=== PATIENT | female | born 1985 | race African-American/Black ===

== ENCOUNTER 2020-02-01 15:47 | Emergency (ER) | payer SELFPAY ==
[2020-02-01 15:59] VITALS: BP 125/94; PULSE 100; RESP 18; TEMP 36.8; O2SAT 100
== END 2020-02-01 17:00 | disposition left against medical advice (07) ==
LOC: ANHED 17:09
DX: R51 Headache (principal)
CPT/HCPCS: 99199

== ENCOUNTER 2020-02-01 17:05 | Emergency (ER) | payer BC, SELFPAY ==
[2020-02-01 17:19] VITALS: BP 145/77; PULSE 98; RESP 16; TEMP 36.9; O2SAT 99
--- NOTE | 2020-02-01 17:21 | ED.DIZZY ---
HPI - Dizziness General Chief Complaint: Dizziness Stated Complaint: Vertigo Time Seen by Provider: 02/01/20 17:22 Source: patient and RN notes reviewed Mode of arrival: wheelchair (walk into registration but wheelchair into a room) Limitations: no limitations History of Present Illness HPI Narrative: This is a 34 years old female presents to the office for an evaluation severe dizziness since she woke up this morning at 3am. Described dizziness as room spinning. Associated with photosensitivity, nauseous, and unable to walk due to unsteadiness. Admits to history of minor CVA in 2013 with similar symptoms which she was hospitalized for but she does not have any residual deficit. She also have similar symptoms in 2017, where she was diagnosed with vertigo and treated with IV medications which solved her symptoms until today. Denies head trauma or injury. She went to [place] [facility] and waited too long so she came here instead. Denies recent hospitalization, surgery or DVT. Related Data Home Medications Medication Instructions Recorded Confirmed Fioricet 02/01/20 Flexeril 02/01/20 Pamelor 02/01/20 Singulair 02/01/20 albuterol sulfate 02/01/20 sertraline 02/01/20 valacyclovir 02/01/20 Allergies Allergy/AdvReac Type Severity Reaction Status Date / Time No Known Allergies Allergy Verified 02/01/20 17:23 Review of Systems Review of Systems: Narrative: CONSTITUTIONAL: Denies fever, chills, sweats. EYES: Denies visual changes, redness, discharge. ENT: Denies rhinorrhea, congestion, sore throat, otalgia. CARDIOVASCULAR: Denies chest pain, palpitation, edema. RESPIRATORY: Denies dyspnea, wheezing, cough GASTROINTESTINAL: Denies abdominal pain, nausea, vomiting, diarrhea. GENITOURINARY: Denies urinary symptoms or discharge SKIN: Denies rash MUSCULOSKELETAL: Denies acute back pain NEUROLOGIC: Denies lightheaded All other systems reviewed are negative, except as documented in HPI. [facility] Past Medical History Medical History (Updated 02/01/20 @ 18:18 by ALETHA Marshall) History of CVA (cerebrovascular accident) without residual deficits Migraine Seasonal allergies Social History Social History (Updated 02/01/20 @ 18:18 by ALETHA Marshall) Smoking status: Never smoker Gender identity (if verbalized by the patient): Female Comments At time of signature, I agree with nursing past medical, surgical, social and family history. There is no relevant family history pertinent to the presenting complaint. Exam Narrative: Exam Narrative: GENERAL: This is a well-nourished, well-developed patient, in no apparent distress. EYES: PERRL. EMOI. Sclera clear/white. Vision is grossly intact. EARS: External ears normal, auditory canals clear and without drainage, TMs normal without perforation, fluid level noted. Hearing grossly intact. NECK: Neck supple, non-tender without lymphadenopathy, masses or thyromegaly. CARDIOVASCULAR: Regular rate and rhythm without murmurs, gallops, or rubs. RESPIRATORY: Clear to auscultation. Breath sounds equal bilaterally. No wheezes, rales, or rhonchi. GASTROINTESTINAL: Abdomen soft, non-tender, nondistended. Bowel sounds are active. No hepato-splenomegaly, or palpable masses. No guarding. SKIN: warm, intact with no suspicious lesions or rash, good texture and turgor. NEURO: speech clear, no facial dropping/symmetrical. Awake, alert, and oriented to person, place and time. There were no obvious focal neurologic abnormalities. EXTREMITIES: Normal range of motion. No edema. [place] Coma Scale Eye Opening: Spontaneous 4 Ayesha Coma Scale Motor: Obeys Commands 6 Ayesha Coma Scale Verbal: Oriented 5 Course Vital Signs Vital signs: Vital Signs Temperature 98.4 F 02/01/20 17:19 Pulse Rate 98 02/01/20 17:19 Respiratory Rate 16 02/01/20 17:19 Blood Pressure 145/77 H 02/01/20 17:19 Pulse Oximetry 99 02/01/20 17:19 Temperature 98.4 F 02/01/20 17:19
--- NOTE | 2020-02-01 17:35 | PC.NURSE ---
Patient was triaged and evaluated by [facility]. Patient was informed we can't evaluate her here. Have no IV medication. Patient needs further evaluation due to past history of CVA and migraines. I took the AMA paper in and patient was very upset. Refused to sign paper. Refused to let me wheel her out in a wheelchair. Was very angry. States she waited at the ED and they were too busy to see her, so she came here.
== END 2020-02-01 17:45 | disposition left against medical advice (07) ==
PROVIDERS: Emergency Provider Nurse Practitioner
DX: R42 Dizziness and giddiness (principal); Z86.73 Personal history of transient ischemic attack (TIA), and cerebral infarction without residual deficits
CPT/HCPCS: 99201; 99203; G0463

== ENCOUNTER 2021-10-19 09:08 | Outpatient (CLI) | payer OTHER, SELFPAY ==
--- NOTE | ~2021-10-19 | MMUS_ITS ---
EXAMINATION: MM diagnostic enrico BI w calos, US breast BI complete HISTORY: Right breast pain TECHNIQUE: Additional 3-D tomosynthesis images of the breasts were performed and synthetic 2-D images were generated. CAD analysis was submitted and interpreted. High resolution bilateral complete breas t ultrasound was performed. COMPARISON: None BREAST PARENCHYMAL COMPOSITION: The breasts are heterogenously dense, which may obscure small masses. FINDINGS: MAMMOGRAPHIC FINDINGS: There are no suspicious masses, calcifications or architectural distortion in either breast to sugges t malignancy. ULTRASOUND: Complete bilateral US of all 4 quadrants of the breasts and retroareolar region was reviewed. Right breast ultrasound: At 6:00, 4 cm from the nipple there is an irregular shaped hypoechoic mass w ith heterogeneous internal echotexture measuring 9 mm maximum dimension. No internal vascularity or p osterior features. There are mildly prominent ducts in the right breast. Left breast ultrasound: At 2:00, 5 cm from the nipple, there is an oval hypoechoic mass measuring 8 x 4 x 3 mm with heterogeneous internal echotexture, parallel orientation, no significant posterior fea tures and no internal vascularity. This most likely represents a benign cluster of microcysts or intr amammary lymph node. IMPRESSION: 1. Ultrasound-guided right breast biopsy of mass at 6:00, 4 cm from the nipple recommended. BI-RADS C ategory 4. 2. Probable benign left breast mass located at 2:00, 5 cm from the nipple. Six-month follow-up left b reast ultrasound recommended. BI-RADS Category 3, likely benign. Reviewed, dictated and finalized at location A. IMPRESSION: 1. Ultrasound-guided right breast biopsy of mass at 6:00, 4 cm from the nipple recommended. BI-RADS Category 4. 2. Probable benign left breast mass located at 2:00, 5 cm from the nipple. Six- month follow-up left breast ultrasound recommended. BI-RADS Category 3, likely benign.
== END 2021-10-19 09:09 ==
DX: N64.4 Mastodynia (principal); R92.8 Other abnormal and inconclusive findings on diagnostic imaging of breast
CPT/HCPCS: 76641; 77062; 77066; G0279

== ENCOUNTER 2022-03-19 08:29 | Emergency (ER) | payer OTHER, SELFPAY ==
[2022-03-19 08:36] VITALS: BP 133/67; PULSE 100; RESP 18; TEMP 36.7; O2SAT 100
--- NOTE | 2022-03-19 08:39 | ED.UPPEXIN ---
HPI - Extremity Injury (Upper) General Chief Complaint: Extremity Problem,Nontraumatic Stated Complaint: Right Hand Pain Time Seen by Provider: 03/19/22 08:45 History of Present Illness HPI narrative: Tracy Calvillo is a 36 yo female with PMH migraines who comes to express care with paronychia on R fourth finger. States she pulled a hangnail out and now the finger is swollen on the medial side of the nail Related Data Home Medications Medication Instructions Recorded Confirmed valacyclovir 1 gram tablet 1,000 mg PO DAILY 03/19/22 03/19/22 Allergies Allergy/AdvReac Type Severity Reaction Status Date / Time No Known Allergies Allergy Verified 03/19/22 08:36 Review of Systems Review of Systems: CONSTITUTIONAL: Denies fever, chills, sweats. EYES: Denies visual changes, redness, discharge. ENT: Denies rhinorrhea, congestion, sore throat, otalgia. CARDIOVASCULAR: Denies chest pain, palpitations, edema. RESPIRATORY: Denies dyspnea, wheezing, cough GASTROINTESTINAL: Denies abdominal pain, nausea, vomiting, diarrhea. GENITOURINARY: Denies dysuria, hematuria, abnormal discharge SKIN: Denies rash or itching. NEUROLOGIC: Denies numbness, or focal weakness. PSYCHIATRIC: Denies anxiety or depression. Swelling along the medial side of fourth right finger PMFSH Past Medical History Medical History History of CVA (cerebrovascular accident) without residual deficits Migraine Seasonal allergies Social History Social History Smoking status: Never smoker Gender identity (if verbalized by the patient): Female Comments At time of signature, I agree with nursing past medical, surgical, social and family history. There is no relevant family history pertinent to the presenting complaint. Exam Narrative: GENERAL: This is a well-nourished, well-developed patient, in mild distress. HEAD: normocephalic, atraumatic. EYES: PERRL. Sclera clear/white. Vision is grossly intact. EARS: External ears normal. Hearing grossly intact. NOSE: External nose normal without nasal discharge, nares without redness, no rhinorrhea. THROAT: Mucous membranes moist, NECK: Neck supple, non-tender CARDIOVASCULAR: Regular rate and rhythm without murmurs, gallops, or rubs. RESPIRATORY: Clear to auscultation. Breath sounds equal bilaterally. No wheezes, rales, or rhonchi. GASTROINTESTINAL: Abdomen soft, non-tender, SKIN: warm, intact with no suspicious lesions or rash, good texture and turgor. NEURO: awake, alert, and oriented to person, place and time. There were no obvious focal neurologic abnormalities. Steady gait EXTREMITIES: Normal range of motion. Right medial distal finger swelling to base of nail, mild erythema and fluctuance BACK: Nontender without deformity Course Course Emergency Course: Patient comes in with right fourth finger distal swelling Given lidocaine half cc cleaned and used 18-gauge needle to run along the nailbed and release pus Patient to soak twice a day and take Keflex Level of Care: Express Care Visit Vital Signs Vital signs: Vital Signs Temperature 98.1 F 03/19/22 08:36 Pulse Rate 100 03/19/22 08:36 Respiratory Rate 18 03/19/22 08:36 Blood Pressure 133/67 03/19/22 08:36 Pulse Oximetry 100 03/19/22 08:36 Oxygen Delivery Room Air 03/19/22 08:36 Temperature 98.1 F 03/19/22 08:36 Pulse Rate 100 03/19/22 08:36 Respiratory Rate 18 03/19/22 08:36 Blood Pressure 133/67 03/19/22 08:36 Pulse Oximetry 100 03/19/22 08:36 Oxygen Delivery Room Air 03/19/22 08:36 Procedures Abscess I/D hand: Date of Incision: 03/19/22 Time of Incision: 09:10 Side (if applicable): right Local Anesthetic: lidocaine 1% Amount of anesthesia used (mL): 0.5 Technique: needle aspiration Amount of fluid expressed (mL): 1 Irrigation: Yes I
== END 2022-03-19 09:17 | disposition home or self-care (01) ==
PROVIDERS: Emergency Provider Nurse Practitioner
DX: L03.011 Cellulitis of right finger (principal); Z86.73 Personal history of transient ischemic attack (TIA), and cerebral infarction without residual deficits
CPT/HCPCS: 10160; 99213; G0463

== ENCOUNTER 2023-07-15 08:39 | Emergency (ER) | payer OTHER, SELFPAY ==
[2023-07-15 08:48] VITALS: BP 115/82; PULSE 105; RESP 16; TEMP 37.3; O2SAT 99
--- NOTE | 2023-07-15 09:21 | ED.ASTHMA ---
HPI - Asthma General Chief Complaint: Asthma Stated Complaint: asthma issue Time Seen by Provider: 07/15/23 09:21 Source: patient Mode of arrival: ambulatory Limitations: no limitations History of Present Illness HPI Narrative: 37-year-old female with history of asthma presents with complaint of intermittent chest tightness, wheezing over the past several days. Patient using inhalers as prescribed. Last neb treatment at 6:00 a.m. today. No shortness of breath at this time. Patient requesting prednisone. All systems reviewed and negative except as noted above. Related Data Home Medications Medication Instructions Recorded Confirmed fluticasone 113mcg-salmeterol 1 inh inhalation BID 04/24/23 07/15/23 14mcg/actuation breath act,powder sensor nortriptyline 10 mg capsule 10 mg PO QHS 04/24/23 07/15/23 albuterol sulfate 90 mcg/actuation 1 inh inhalation Q4H 05/18/23 07/15/23 aerosol inhaler Allergies Allergy/AdvReac Type Severity Reaction Status Date / Time No Known Allergies Allergy Verified 07/15/23 08:53 Review of Systems Review of Systems: CONSTITUTIONAL: Denies fever, chills, or sweats. EYES: Denies visual changes, redness, or discharge. ENT: Denies rhinorrhea, congestion, sore throat, or otalgia. CARDIOVASCULAR: Denies chest pain, palpitations, or edema. RESPIRATORY: reports chest tightness, intermittent wheezing. Denies cough. GASTROINTESTINAL: Denies abdominal pain, nausea, vomiting, or diarrhea. GENITOURINARY: denies dysuria or hematuria. SKIN: Denies rash or itching. MUSCULOSKELETAL: Denies back pain, joint pain, or myalgia. NEUROLOGIC: Denies headache, numbness, or weakness. PSYCHIATRIC: Denies anxiety or depression. All other systems reviewed are negative, except as documented in HPI. [facility] Past Medical History Medical History Asthma History of CVA (cerebrovascular accident) without residual deficits History of herpes evaluations History of miscarriage Migraine Seasonal allergies Surgical History Surgical History H/O tubal ligation History of 2 sections History of elective [place] teeth removed Family History Family History Other Asthma Hypertension Social History Social History Smoking status: Never smoker Alcohol intake: current Substance use: never Substance use type: does not use Lack of Transportation: No Lack of Food: Never True Current Housing: I Have Housing Concerned About Future Housing: No Difficulty Paying Gas/Electric Bills: No Difficulty Paying for Meds: No Currently Unemployed: No Education: Decline to Answer Difficulty w/ Childcare or Family Care: No Gender identity (if verbalized by the patient): Female Spiritual care concerns: No Agree to blood products: Yes Comments At time of signature, agree with nursing past medical, surgical, social and family history. There is no relevant family history pertinent to the presenting complaint. Exam Narrative: GENERAL: This is a well-nourished, well-developed patient, in no apparent distress. HEAD: normocephalic, atraumatic. EYES: PERRL. Sclera clear/white. Vision is grossly intact. EARS: External ears normal NOSE: External nose normal NECK: Neck supple, non-tender without lymphadenopathy, masses or thyromegaly. CARDIOVASCULAR: Regular rate and rhythm without murmurs, gallops, or rubs. RESPIRATORY: Clear to auscultation. Breath sounds equal bilaterally. No wheezes, rales, or rhonchi. SKIN: warm, Dry, intact with no suspicious lesions or rash, good texture and turgor. NEURO: awake, alert, and oriented to person, place and time. There were no obvious focal neurologic abnormalities. EXTREMITIES: No joint tenderness, effusion,
== END 2023-07-15 09:41 | disposition home or self-care (01) ==
PROVIDERS: Emergency Provider Nurse Practitioner Family; PCP Family Medicine
DX: J45.901 Unspecified asthma with (acute) exacerbation (principal); Z86.73 Personal history of transient ischemic attack (TIA), and cerebral infarction without residual deficits
CPT/HCPCS: 99213; G0463

== ENCOUNTER 2024-01-23 09:10 | Outpatient (CLI) | payer OTHER, SELFPAY ==
--- NOTE | ~2024-01-23 | MMUS_ITS ---
EXAMINATION: MM diagnostic enrico LT w calos, US breast LT complete HISTORY: Palpable left breast lump near the nipple TECHNIQUE: Additional 3-D tomosynthesis images of the left breast were performed and synthetic 2-D im ages were generated. CAD analysis was submitted and interpreted. High resolution complete left breast ultrasound was performed. COMPARISON: 10/19/2021 BREAST PARENCHYMAL COMPOSITION: Dense: The breasts are heterogeneously dense, which may obscure small masses FINDINGS: MAMMOGRAPHIC FINDINGS: There are suspicious architectural distortion or clustered calcifications. There is a focal mass near the nipple in the lower inner quadrant. ULTRASOUND: Complete bilateral US of all 4 quadrants of the left breast and retroareolar region was reviewed. At 3:00, 2 cm from the nipple, there is an oval hypoechoic 5 mm mass with low level internal echoes, and parallel orientation, no posterior features, likely benign complicated cyst. At 10:00, 4 cm from the nipple there is an oval hypoechoic 6 mm mass with parallel orientation, posterior acoustic enhanceme nt, likely complicated cysts. Near the arterial lobe there is an tubular hypoechoic structure with in ternal echogenic material likely a dilated duct with internal debris or mass. IMPRESSION: 1. Tubular structure in the left are a left with internal debris/masses. 2. Ultrasound-guided left breast biopsy recommended. BI-RADS category 4, suspicious findings. Reviewed, dictated and finalized at location B. IMPRESSION: 1. Tubular structure in the left are a left with internal debris/masses. 2. Ultrasound-guided left breast biopsy recommended. BI-RADS category 4, suspicious findings.
== END 2024-01-23 09:11 ==
LOC: MICIMG 09:11
PROVIDERS: PCP Family Medicine; Visit Provider Surgery
DX: N64.52 Nipple discharge (principal); N61.0 Mastitis without abscess; N64.4 Mastodynia; R92.8 Other abnormal and inconclusive findings on diagnostic imaging of breast
CPT/HCPCS: 76641; 77061; 77065; G0279

== ENCOUNTER 2024-02-29 08:08 | Outpatient (CLI) | payer OTHER, SELFPAY ==
--- NOTE | ~2024-02-29 | MMUS_ITS ---
US breast biopsy LT w image, MM post biopsy diagnostic LT EXAMINATION: US GUIDED NEEDLE BIOPSY WITH VACUUM ASSISTANCE DATE: 02/29/2024 10:32 CDT INDICATION: Intraductal mass seen on prior examination. Ultrasound-guided core biopsy is requested t o evaluate for malignancy. BREAST PARENCHYMAL COMPOSITION: Dense: The breasts are heterogeneously dense, which may obscure small masses TECHNIQUE AND FINDINGS: The risks and potential benefits of the procedure were discussed with the patient, and written inform ed consent was obtained. After sterile preparation of the left breast, 1% lidocaine was utilized for local anesthesia. 1% lidocaine with epinephrine was used for deep anesthesia. A 10G vacuum-assisted biopsy gun needle was advanced through to the outer edge of the region of inter est from a lateral approach utilizing sonographic guidance. A total of 2 tissue core samples were ob tained through the lesion. An Inrad tissue marker clip was then placed at the biopsy site. Hemostasi s was achieved. The patient tolerated procedure well and there was no evidence of immediate complication. The patien t was given verbal instructions partly is from the department. Left breast mammograms to document ti ssue marker clip placement. The tissue samples were submitted to surgical pathology for histologic an alysis. IMPRESSION: 1. Successful ultrasound-guided vacuum-assisted biopsy of left breast mass with post procedure mammo gram for marker placement. Please refer to pathology report for histologic analysis. Reviewed, dictated and finalized at location B. IMPRESSION: 1. Successful ultrasound-guided vacuum-assisted biopsy of left breast mass wit h post procedure mammogram for marker placement. Please refer to pathology repo rt for histologic analysis.
== END 2024-02-29 08:09 | disposition home or self-care (01) ==
PROVIDERS: PCP Family Medicine; Visit Provider Surgery
DX: N64.52 Nipple discharge (principal); N63.20 Unspecified lump in the left breast, unspecified quadrant; R92.8 Other abnormal and inconclusive findings on diagnostic imaging of breast
CPT/HCPCS: 19083; 77065; 88305; A4648

== ENCOUNTER 2024-09-27 15:19 | Emergency (ER) | payer OTHER, SELFPAY ==
--- NOTE | 2024-09-27 15:23 | ED.URI ---
HPI - URI/Sore Throat General Chief Complaint: Upper Respiratory Infection Stated Complaint: Sinus Time Seen by Provider: 09/27/24 15:23 Source: patient Mode of arrival: ambulatory Limitations: no limitations History of Present Illness HPI Narrative: Tracy is a 39 year old female patient presenting to the clinic today with c/o sinus congestion. She reports symptoms have been going on for approximately 5 days. Denies any fevers, chills, body aches. Does have a loss sinus congestion with drainage going down her throat. MD elicited complaint: cough, rhinorrhea, nasal congestion and sinus pain Related Data Home Medications ?Medication ?Instructions ?Recorded ?Confirmed ?Last Taken ?Type nortriptyline 10 mg capsule 10 mg PO QHS 04/24/23 07/02/24 Unknown History Allergies Allergy/AdvReac Type Severity Reaction Status Date / Time No Known Allergies Allergy Verified 09/27/24 15:33 Review of Systems Review of Systems: Pertinent positives per HPI. Patient denies any fever, chills, rash, headache, visual changes, dizziness, shortness of breath, chest pain, palpitations, nausea, vomiting, diarrhea, constipation, abdominal pain, or any urinary issues. [facility] Past Medical History Medical History History of miscarriage History of herpes evaluations Asthma Seasonal allergies Migraine History of CVA (cerebrovascular accident) without residual deficits Surgical History Surgical History [place] teeth removed History of elective H/O tubal ligation History of 2 sections Family History Family History Father Asthma Mother Alcoholism Other Hypertension Social History Social History Smoking status: Never smoker Alcohol intake: current Substance use: never Substance use type: does not use Lack of Transportation: No Lack of Food: Never True Current Housing: I Have Housing Concerned About Future Housing: No Difficulty Paying Gas/Electric Bills: No Difficulty Paying for Meds: No Currently Unemployed: No Education: Decline to Answer Difficulty w/ Childcare or Family Care: No Gender identity (if verbalized by the patient): Female Spiritual care concerns: No Agree to blood products: Yes Comments At the time of my signature, I reviewed and agree with the nursing past medical, surgical, social, and family history. There is no relevant family history pertinent to the patient complaint. Exam Narrative: General: Well-developed, well nourished, in no apparent distress Head: Normocephalic, atraumatic Eyes: Pupils equally round and reactive to light bilaterally, EOM intact, sclera and conjunctive clear, no discharge, lids normal Ears: TMs intact and clear, ear canals clear, no drainage, grossly hearing normal. Nose: Nares patent, clear nasal discharge, moderate inflammation, maxillary sinus tenderness. Mouth: Oral pharynx without lesions or masses, good dentition, MMM. Postnasal drip Neck: Supple, trachea midline, no enlargement of anterior or posterior cervical nodes, no thyroid masses or goiter palpable. Cardio: Regular rate and rhythm, s1 and s2 normal, no murmur appreciated. Resp: Clear to auscultation bilaterally, no rhonchi, rales, wheezing or rubs Course Course Emergency Course: Portions of this record may have been created with voice recognition software. Level of Care: Express Care Visit Vital Signs Vital signs: Vital signs reviewed MDM - URI/Sore Throat MDM Narrative Medical decision making narrative: At the time of visit patient is resting comfortably on the exam table. Patient appears to be nontoxic. Plan: I suspect patient has URI. Prescription for prednisone was sent to the pharmacy. Supportive measures were discussed with the patient and they voiced understanding discharge instructions and agrees to treatment plan. Return precautions reviewed Differential Diagnosis Differential diagnosis: Likely upper respiratory infection, otitis media, sinusitis, viral infection, bronchitis, influenza, pharyngitis and other (COVID) Discharge Plan Discharge Clinical Impression: URI (upper respiratory infection) Qualifiers: URI type: unspecified URI Qualified Code(s): J06.9 - Acute upper respiratory infection, unspecified Patient Disposition: Home, Self-Care Condition: Stable Instructions: Antibiotic Form, Cold Symptoms (ED) Additional Instructions: Take prescription medications only as prescribed-prednisone Increase fluids and stay well hydrated Tylenol/motrin for pain/fever Flonase and OTC antihistamines as directed Vicks vapor rub to open sinuses Sinus rinses for congestion Cepacol spray, cough drops, throat lozenges, warm tea with honey/lemon, gargle salt water to soothe throat BRAT diet for diarrhea Clear liquids x 24 hours then advance as tolerated for nausea/vomiting Go to the ED if you develop a worsening in your condition- high fever not controlled by Tylenol or Motrin, dehydration, weakness, lethargy, shortness of breath, or chest pain. Follow up with your PCP in 3-5 days if symptoms persist. Patient Language: Honduran Prescriptions: New prednisone 20 mg tablet 40 mg PO DAILY 5 Days Qty: 10 0RF No Action nortriptyline 10 mg capsule 10 mg PO QHS tranexamic acid 650 mg tablet 1,300 mg PO TID PRN (Reason: Heavy menstrual periods) Qty: 30 0RF Rx Instructions: Do not take more than five days in a row. fluticasone propion-salmeterol [Wixela Inhub] 250-50 mcg/dose blister with device 1 inh inhalation BID Qty: 60 0RF amoxicillin-pot clavulanate 875-125 mg tablet 1 tablet PO BID Qty: 20 0RF valacyclovir [Valtrex] 1 gram tablet 1,000 mg PO DAILY Qty: 90 3RF Rx Instructions: Take 1 p.o. q.12 hours for 3 days before onset of symptoms Contrave 8-90 mg tablet extended release See Rx Instructions PO .COMPLEX Qty: 120 1RF Rx Instructions: Take 1 tablet daily for 7 days then 1 bid for 7 days 2 AM and 1 PM for 7 days then 2 bid thereafter orally; albuterol sulfate 90 mcg/actuation HFA aerosol inhaler 1 inh inhalation Q4H PRN (Reason: shortness of breath or wheezing) Qty: 8.5 2RF albuterol sulfate 2.5 mg /3 mL (0.083 %) solution for nebulization 2.5 mg inhalation Q6H PRN (Reason: shortness of breath or wheezing) Qty: 75 0RF Follow-up/Referrals: Mini Miller MD [Primary Care Provider] - Time of Disposition: 15:35 Quality NIHSS Nursing Documentation ED NIHSS nursing documentation: reviewed/agree
[2024-09-27 15:30] VITALS: BP 144/87; PULSE 91; RESP 19; TEMP 37; O2SAT 100
== END 2024-09-27 15:44 | disposition home or self-care (01) ==
PROVIDERS: Emergency Provider Nurse Practitioner Family; PCP Family Medicine
DX: J06.9 Acute upper respiratory infection, unspecified (principal); J45.909 Unspecified asthma, uncomplicated; Z86.73 Personal history of transient ischemic attack (TIA), and cerebral infarction without residual deficits
CPT/HCPCS: 99213; G0463

== ENCOUNTER 2025-03-22 08:04 | Emergency (ER) | payer OTHER, SELFPAY ==
[2025-03-22 08:10] VITALS: BP 127/76; PULSE 107; RESP 20; TEMP 36.9; O2SAT 100
--- NOTE | 2025-03-22 08:12 | ED_ITS ---
HPI - Asthma General Chief Complaint: Asthma Stated Complaint: asthma Patient presents to the [facility] with complaints starting an asthma flare yesterday. Patient noted chest tightness, occasional wheezing, increased coughing- also noted scratchy throat believes this to be from coughing. Patient noted using her albuterol inhaler and nebulizer last night with some relief of symptoms. Patient does take Claritin every day as well. Denies daily maintenance inhaler usually does not have significant symptoms except for other change. Denies fever, chills, body aches, sinus pain, ear pain, difficulty swallowing, nausea, vomiting, diarrhea, dizziness. Related Data Home Medications ?Medication ?Instructions ?Recorded ?Confirmed ?Last Taken ?Type nortriptyline 10 mg capsule 10 mg PO QHS 04/24/2306/16 Unknown History Allergies Allergy/AdvReac Type Severity Reaction Status Date / Time No Known Allergies Allergy Verified 03/22/25 08:08 Review of Systems Constitutional: Constitutional: Reports as per HPI, Denies chills, Denies fatigue, Denies fever(s) and Denies weakness Eyes: Eyes: Reports no additional eye complaints ENT: Reports as per HPI, Denies vertigo, Denies dizziness, Denies nasal congestion and Reports sore throat ( Scratchy) Cardiovascular: Cardiovascular: Reports as per HPI, Denies chest pain, Denies rapid heart rate, Denies radiating jaw, neck or arm pain and Denies slow heart rate Respiratory: Respiratory: Reports as per HPI, Reports chest congestion, Reports cough, Reports dyspnea and Reports wheezing Gastrointestinal: Gastrointestinal: Reports as per HPI, Denies diarrhea, Denies nausea and Denies vomiting Genitourinary: Genitourinary: Reports no additional female genitourinary complaints Musculoskeletal: Musculoskeletal: Reports as per HPI and Denies myalgias Integumentary/Breasts: Skin/Breast: Reports as per HPI and Denies rash Neurologic: Reports as per HPI, Denies vertigo, Denies dizziness, Denies syncope, Denies headache(s) and Denies weakness Psychiatric: Psychiatric: Reports no additional psychiatric complaints Endocrine: Endocrine: Reports no additional endocrine complaints Hematologic/Lymphatic: Hematologic/Lymphatic: Reports no additional hematologic/lymphatic complaints Allergic/Immunologic: Allergic/Immunologic: Reports as per HPI, Denies throat swelling, Denies tongue swelling and Denies wheezing Comments: seasonal allergies PMFSH Past Medical History Medical History History of miscarriage History of herpes evaluations Asthma Seasonal allergies Migraine History of CVA (cerebrovascular accident) without residual deficits Surgical History Surgical History [place] teeth removed History of elective H/O tubal ligation History of 2 sections Family History Family History Father Asthma Mother Alcoholism Other Hypertension Social History Social History Smoking status: Never smoker Alcohol intake: current Substance use: never Substance use type: does not use Lack of Transportation: No Lack of Food: Never True Current Housing: I Have Housing Concerned About Future Housing: No Difficulty Paying Gas/Electric Bills: No Difficulty Paying for Meds: No Currently Unemployed: No Education: Decline to Answer Difficulty w/ Childcare or Family Care: No Gender identity (if verbalized by the patient): Female Spiritual care concerns: No Agree to blood products: Yes Exam Const: General: healthy appearing, no acute distress and alert Nutritional Appearance: well nourished Orientation/consciousness: patient oriented x3 Limitations: no limitations HENMT: Head: normal to inspection Mouth: Yes Normal oral and palatal mucosa present, Yes lip normal and Yes moist mucous membranes Throat: posterior oropharynx abnormal ( minimal erythema. no edema or exudate) Neck: Neck: normal visual inspection and no lymphadenopathy Chest: Chest palpation & inspection: normal inspection of the chest Resp: Effort & Inspection: normal respiratory effort Auscultation: clear to auscultation bilaterally Other: dry harsh cough noted Cardio: Rate: regular rate Rhythm: regular rhythm Skin: General skin exam: normal color Lesions: no lesions Wounds: no wounds Neuro: General: patient oriented x3 and moves all extremities Speech: normal speech Gait exam (Neuro): Normal gait present Psych: Mental Status: mental status grossly normal Affect: normal affect Attitude: cooperative Course Course Level of Care: Express Care Visit Vital Signs Vital signs: Vital Signs Temperature 98.4 F 03/22/25 08:10 Pulse Rate 107 H 03/22/25 08:10 Respiratory Rate 20 03/22/25 08:10 Blood Pressure 127/76 03/22/25 08:10 Pulse Oximetry 100 03/22/25 08:10 Oxygen Delivery Room Air 03/22/25 08:10 Temperature 98.4 F 03/22/25 08:10 Pulse Rate 107 H 03/22/25 08:10 Respiratory Rate 20 03/22/25 08:10 Blood Pressure 127/76 03/22/25 08:10 Pulse Oximetry 100 03/22/25 08:10 Oxygen Delivery Room Air 03/22/25 08:10 MDM - Asthma MDM Narrative Medical decision making narrative: no significant distress noted in Express Care today. The patient was evaluated by myself in the express care. History is obtained from patient who is an independent historian and physical exam was performed. Available medical records were reviewed at this time. Exam findings show no acute concerns or changes; patient is non-toxic appearing and is in no distress. Patient is appropriate for outpatient treatment and follow-up. I have evaluated and discussed social determinants of health with the patient that could potentially impact subsequent diagnosis and treatment plans. Differential diagnosis and treatment plan were discussed with the patient. Patient agrees with discussion and after shared medical decision making agrees with plan of care. All questions were answered to the patient's satisfaction. Differential Diagnosis Differential diagnosis: Likely Acute exacerbation, Acute asthmatic bronchitis, Pulmonary edema dystolic and ARDS Medical Records Attestation: I reviewed the patient's medical records. Discharge Plan Discharge Clinical Impression: Asthma with acute exacerbation Patient Disposition: Home Condition: Stable Instructions: Antibiotic Form, Asthma (ED), Bronchospasm (ED) Additional Instructions: Take the prednisone as directed. Continue using your nebulizer or inhaler every 4 hours as needed for cough, shortness of and wheezing. May use the benzonatate / Tessalon Perles as needed for cough. Continue taking your daily Claritin/Ame /Zyrtec. may also use Benadryl as needed. Some asthmatics do use Singulair daily which can help asthma flare ups. Recommended using this 2 weeks before your known flareup times. Continue taking this daily throughout flare-up times. If you do not notice any decrease in symptoms after 2 days follow-up with primary care for further evaluation. If you notice significant shortness of breath, wheezing, and inhalers/ nebulizer not working go to the emergency room for further evaluation of symptoms. Patient Language: Turkmen Prescriptions: New prednisone 20 mg tablet 60 mg PO DAILY Qty: 15 0RF albuterol sulfate [Ventolin HFA] 90 mcg/actuation HFA aerosol inhaler 2 puff inhalation QID PRN (Reason: shortness of breath or wheezing) Qty: 8.5 0RF benzonatate 200 mg capsule 200 mg PO TID PRN (Reason: cough) Qty: 30 0RF No Action nortriptyline 10 mg capsule 10 mg PO QHS tranexamic acid 650 mg tablet 1,300 mg PO TID PRN (Reason: Heavy menstrual periods) Qty: 30 0RF Rx Instructions: Do not take more than five days in a row. fluticasone propion-salmeterol [Wixela Inhub] 250-50 mcg/dose blister with device 1 inh inhalation BID Qty: 60 0RF valacyclovir [Valtrex] 1 gram tablet 1,000 mg PO DAILY Qty: 90 3RF Rx Instructions: Take 1 p.o. q.12 hours for 3 days before onset of symptoms Contrave 8-90 mg tablet extended release See Rx Instructions PO .COMPLEX Qty: 120 1RF Rx Instructions: Take 1 tablet daily for 7 days then 1 bid for 7 days 2 AM and 1 PM for 7 days then 2 bid thereafter orally; albuterol sulfate 90 mcg/actuation HFA aerosol inhaler 1 inh inhalation Q4H PRN (Reason: shortness of breath or wheezing) Qty: 8.5 2RF albuterol sulfate 2.5 mg /3 mL (0.083 %) solution for nebulization 2.5 mg inhalation Q6H PRN (Reason: shortness of breath or wheezing) Qty: 75 0RF Follow-up/Referrals: Mini Miller MD [Primary Care Provider, Family Practice] Time of Disposition: 08:31
== END 2025-03-22 08:35 | disposition home or self-care (01) ==
PROVIDERS: Emergency Provider Nurse Practitioner Family; PCP Family Medicine
DX: J45.901 Unspecified asthma with (acute) exacerbation (principal); Z86.73 Personal history of transient ischemic attack (TIA), and cerebral infarction without residual deficits
CPT/HCPCS: 99213; G0463; J7512

== ENCOUNTER 2025-06-09 08:08 | Emergency (ER) | payer OTHER, SELFPAY ==
[2025-06-09 08:11] VITALS: BP 127/80; PULSE 100; RESP 16; TEMP 36.7; O2SAT 100
--- OUTSIDE RECORDS SUMMARY | 2025-06-09 08:14 | XMS_ITS | Clinical Summary ---
Author Organization [facility] Address [address] [place] [address] Phone Care Team Providers Care Magistrate Assistant Name Role Phone Unavailable Primary Care Provider Unavailabl e Allergies No known active allergies Medications cyclobenzaprine (FLEXERIL) 10 mg tablet Take 10 mg by mouth 3 times daily as needed for Spasm. Active montelukast (SINGULAIR) 10 mg tablet Take 10 mg by mouth daily. Active cetirizine (ZyrTEC) 10 mg tablet Take 10 mg by mouth daily. Active ALBUTEROL INHALATION Take by inhalation. Active valACYclovir (VALTREX) 500 mg tablet Take 500 mg by mouth Continuous as needed. Active meclizine (ANTIVERT) 25 mg tablet Take 1 Tablet (25 mg) by mouth 3 times daily as needed for Dizziness. 10 Tablet None 0 Active prochlorperazin e maleate (COMPAZINE) 10 mg tablet Take 1 Tablet (10 mg) by mouth every 6 hours as needed for Nausea. 10 Tablet None 0 Active Social History Tobacco Use Types Packs/Day Years Used Date Smoking Tobacco: Never Comments Unknown Sex and Gender Information Value Date Recorded Sex Assigned at Not on file Legal Sex Female 7:24 AM CDT Gender Identity Not on file Sexual Orientation Not on file Last Filed Vital Signs Vital Sign Reading Time Taken Comments Blood Pressure 116/75 02/02/2020 11:49 AM CDT Pulse 99 02/02/2020 11:49 AM CDT Temperature 36.6 C (97.9 F) 02/02/2020 11:49 AM CDT Respiratory Rate 18 02/02/2020 11:49 AM CDT Oxygen Saturation 100% 02/02/2020 11:49 AM CDT Inhaled Oxygen Concentration - - Weight 74.8 kg (165 lb) 02/02/2020 7:31 AM CDT Height 152.4 cm (5') 02/02/2020 7:31 AM CDT Body Mass Index 32.22 02/02/2020 7:31 AM CDT Plan of Treatment Health Maintenance Due Date Last Done Comments DTAP/TDAP/TD VACCINES (1 - Tdap) 2003 HEPATITIS B VACCINES (1 of 3 - 19+ 3-dose series) 2003 HPV/Cotest (21-29) 2005 HPV VACCINES (1 - 3-dose SCDM series) 2011 CERVICAL CANCER SCREENING 2014 HPV/Cotest (30-65) 2014 PAP SMEAR 2014 BREAST CANCER SCREENING 2024 INFLUENZA VACCINE (#1) 2025 05/11/2016, 2008 Insurance [facility] BLUE PREFERRED
--- OUTSIDE RECORDS SUMMARY | 2025-06-09 08:14 | XMS_ITS | Patient Health Record ---
Author Organization [facility] Address [address] [place], [place] [address] Care Team Providers Care Supervisor Slashing Department Name Role Phone Nabil Parrish Primary Care Provider Reason For Referral No Information Medications Medication SIG (Take, Route, Fr equency, Duration) Notes Start Date End Date Status Acyclovir 400 MG 1 tablet Orally Twic e a day; Duration: 10 day(s) 09/07/2021 Active Social History Sex Assigned At : Social History Observation Description Sex Assigned At Female Plan Of Treatment No Information Insurance Providers Payer Name Payer Address Payer Phone Subscriber Number Group Number Insured Name Patient Relationship to Insured Coverage Start Date Coverage End Date [facility] [employer] [address] [place] [phone] [id number] Tracy Calvillo Self - patient is the insured
--- OUTSIDE RECORDS SUMMARY | 2025-06-09 08:14 | XMS_ITS | Encounter Summary ---
Author Organization [facility] Address [address] [place] [address] Care Team Providers Care Factory Manager Name Role Phone Renea Saenz MD Primary Care Provider [phone] Dawit Rivas MD Unavailable Melinda Jay MD Primary Care Provider + [phone] Pamela Vazquez OIL WELL PERFORATOR OPERATOR-[facility] Unavailable [phone] Vineet Nuno MD Primary Care Provider [phone] PcpMaddie [facility] Primary Care Provid er Unavailable Renea Sanez MD Unavailable [phone] Reason for Visit * Reason Comments Refill Request Encounter Details Date Type Department Care Team (Late st Contact Info) Description 11/20/2017 Refill [facility] - TAPE WEAVER [address] [place] [phone] [place] [address] [place] [address] Refill Request Social History Tobacco Use Types Packs/Day Years Used Date Smoking Tobacco: Never Smokeless Tobacco: Never Alcohol Use Standard Drinks/Week Comments Yes 0 (1 standard drink = 0.6 oz pur e alcohol) sometimes Comments No Sex and Gender Information Value Date Recorded Sex Assigned at Not on file Legal Sex Female 4:47 AM AUTOMOBILE SERVICE WRITER Gender Identity Not on file Sexual Orientation Not on file documented as of this encounter Functional Status * Is person deaf or have serious hearing difficulty? Answer Date of Assessment Author No 08/21/2013 9:47 AM Lindsay Smith RN * Is person blind or have serious difficulty seeing? Answer Date of Assessment Author No 08/21/2013 9:47 AM Lindsay Smith RN * Does person have serious difficulty walking/climbing stairs? Answer Date of Assessment Author No 08/21/2013 9:47 AM Lindsay Smith RN * Does person have difficulty dressing/bathing? Answer Date of Assessment Author No 08/21/2013 9:47 AM Lindsay Smith RN * Does person have difficulty doing errands alone? Answer Date of Assessment Author No 08/21/2013 9:47 AM Lindsay Smith RN documented as of this encounter Mental Status * Does person have difficulty concentrating/remembering/making decisions? Answer Entry Date Author No 08/21/2013 9:47 AM Lindsay Smith RN documented in this encounter Plan of Treatment Not on file documented as of this encounter Visit Diagnoses Not on filedocumented in this encounter Care Teams Factory Manager Relationship Specialty Start Date End Date Renea Saenz MD PCP - General 06/18/08 11/16/20 [place] [address] [place] [address] PCP - General Family Medicine 11/17/20 10/12/21 [place] [address] [facility] [place] [address] PCP - General Family Medicine 10/14/21 02/09/23 PcpMaddie [facility] PCP - General 02/10/23 Renea Saenz MD [address] [place] [address] [place] [address] PCP - Attributed-[place] [employer] 09/08/17 03/07/18 [place] [address] [place] [address] Handle Attacher Obstetrics and Gynecology 01/02/12 Pamela Vazquez, OIL WELL PERFORATOR OPERATOR-[facility] [address] [place] [address] Nurse Practitioner 12/01/20 10/12/21 documented as of this encounter
--- OUTSIDE RECORDS SUMMARY | 2025-06-09 08:14 | XMS_ITS | Encounter Summary ---
Author Organization [facility] Address [address] [place] [address] Care Team Providers Care Dental Patient Coordinator Name Role Phone Renea Saenz MD Primary Care Provider [phone] Dawit Rivas MD Unavailable Melinda Jay MD Primary Care Provider + [phone] Pamela Vazquez PRODUCTION CONTROLLER-OPTOMETRIC ASSISTANT Unavailable [phone] Vineet Nuno MD Primary Care Provider [phone] Pcp, Maddie [facility] Primary Care Provid er Unavailable Renea Saenz MD Unavailable [phone] Encounter Details Date Type Department Care Team (Late st Contact Info) Description 10/17/2013 [facility]NAL [facility]PT Social History Tobacco Use Types Packs/Day Years Used Date Smoking Tobacco: Never Smokeless Tobacco: Never Alcohol Use Standard Drinks/Week Comments Yes 0 (1 standard drink = 0.6 oz pur e alcohol) sometimes Comments No Sex and Gender Information Value Date Recorded Sex Assigned at Not on file Legal Sex Female 4:47 AM MILIEU THERAPIST Gender Identity Not on file Sexual Orientation Not on file documented as of this encounter Functional Status * Is person deaf or have serious hearing difficulty? Answer Date of Assessment Author No 08/21/2013 9:47 AM MILIEU THERAPIST Lindsay Bell RN * Is person blind or have [...] on filedocumented in this encounter Care Teams Dental Patient Coordinator Relationship Specialty Start Date End Date Renea Saenz MD PCP - General 06/18/08 11/16/20 Melinda Jay MD [address] [place] [address] PCP - General Family Medicine 11/17/20 10/12/21 [place] [address] [facility] [place] [address] PCP - General Family Medicine 10/14/21 02/09/23 PcpMaddie - PCP - General 02/10/23 Renea Saenz MD [address] [place] [address] PCP - Attributed-[place] [employer] 09/08/17 03/07/18 Dawit Rivas MD [address] [place] [address] Energy Consultant Obstetrics and Gynecology 01/02/12 Pamela Vazquez, RIZWAN-OPTOMETRIC ASSISTANT [address] [place] [address] Nurse Practitioner 12/01/20 10/12/21 documented as of this encounter
--- OUTSIDE RECORDS SUMMARY | 2025-06-09 08:14 | XMS_ITS | Encounter Summary ---
Author Organization [facility] Address [address] [facility] [place] [address] Care Team Providers Care Veterinary Receptionist Name Role Phone Renea Saenz MD Primary Care Provider [phone] Dawit Rivas MD Unavailable Melinda Jay MD Primary Care Provider + [phone] Pamela Vazquez SHEARING MACHINE OPERATOR-[facility] Unavailable [phone] Vineet Nuno MD Primary Care Provider [phone] PcpMaddie [facility] Primary Care Provid er Unavailable Renea Saenz MD Unavailable [phone] Reason for Visit * Reason Comments Refill Request Encounter Details Date Type Department Care Team (Late st Contact Info) Description 06/01/2017 Refill [facility] - MISCELLANEOUS MACHINE OPERATOR [address] [place] [phone] [place] [address] [place] [address] Refill Request Social History Tobacco Use Types Packs/Day Years Used Date Smoking Tobacco: Never Smokeless Tobacco: Never Alcohol Use Standard Drinks/Week Comments Yes 0 (1 standard drink = 0.6 oz pur e alcohol) sometimes Comments No Sex and Gender Information Value Date Recorded Sex Assigned at Not on file Legal Sex Female 4:47 AM TRAIN CONDUCTOR Gender Identity Not on file Sexual Orientation [...] on filedocumented in this encounter Care Teams Veterinary Receptionist Relationship Specialty Start Date End Date Renea Saenz MD PCP - General 06/18/08 11/16/20 [place] [address] [place] [address] PCP - General Family Medicine 11/17/20 10/12/21 [place] [address] [facility] [place] [address] PCP - General Family Medicine 10/14/21 02/09/23 PcpMaddie [facility] PCP - General 02/10/23 Renea Saenz MD [address] [place] [address] [place] [address] PCP - Attributed-[place] [employer] 09/08/17 03/07/18 [place] [address] [place] [address] Crop Duster Obstetrics and Gynecology 01/02/12 Pamela Vazquez, SHEARING MACHINE OPERATOR-[employer] EXTRACTION WORKER [address] [place] [address] Nurse Practitioner 12/01/20 10/12/21 documented as of this encounter
--- OUTSIDE RECORDS SUMMARY | 2025-06-09 08:14 | XMS_ITS | Encounter Summary ---
Author Organization [facility] Address [address] [facility] [facility] [place] [address] Care Team Providers Care Laborer Hide House Name Role Phone Renea Saenz MD Primary Care Provider [phone] Dawit Rivas MD Unavailable Melinda Jay MD Primary Care Provider + [phone] Pamela Vazquez INDIAN BLANKET WEAVER-SUPERINTENDENT [employer]ARR[employer] Unavailable [phone] Vineet Nuno MD Primary Care Provider [phone] PcpMaddie [facility] Primary Care Provid er Unavailable Reason for Visit * Reason Comments Refill Request Encounter Details Date Type Department Care Team (Late st Contact Info) Description 12/08/2018 Refill [facility] - MEDIA RELATIONS DIRECTOR [address] [place] [phone] [place] [address] [place] [address] Refill Request Social History Tobacco Use Types Packs/Day Years Used Date Smoking Tobacco: Never Smokeless Tobacco: Never Alcohol Use Standard Drinks/Week Comments Yes 0 (1 standard drink = 0.6 oz pur e alcohol) sometimes Comments No Sex and Gender Information Value Date Recorded Sex Assigned at Not on file Legal Sex Female 4:47 AM FINANCIAL ADVISOR Gender Identity Not on file Sexual Orientation [...] on filedocumented in this encounter Care Teams Laborer Hide House Relationship Specialty Start Date End Date Renea Saenz MD PCP - General 06/18/08 11/16/20 Melinda Jay MD [address] [place] [address] PCP - General Family Medicine 11/17/20 10/12/21 [place] [address] [place] [address] PCP - General Family Medicine 10/14/21 02/09/23 Maddie [place] - PCP - General 02/10/23 Dawit Rivas MD [address] [place] [id number] Sorter Lumber Straightener Obstetrics and Gynecology 01/02/12 Pamela Vazquez, INDIAN BLANKET WEAVER-SUPERINTENDENT [place] [address] [place] [address] Nurse Practitioner 12/01/20 10/12/21 documented as of this encounter
--- OUTSIDE RECORDS SUMMARY | 2025-06-09 08:14 | XMS_ITS | Encounter Summary ---
Author Organization [facility] Address [address] [facility] [place] [address] Care Team Providers Care Power Plant Supervisor Name Role Phone Renea Saenz MD Primary Care Provider [phone] Dawit Rivas MD Unavailable Melinda Jay MD Primary Care Provider + [phone] Pamela Vazquez LABEL SEWER-SENIOR PROGRAM ANALYST Unavailable [phone] Vineet Nuno MD Primary Care Provider [phone] PcpMaddie [facility] Primary Care Provid er Unavailable Reason for Visit * Reason Comments Refill Request Encounter Details Date Type Department Care Team (Late st Contact Info) Description 08/11/2018 Refill [facility] Medical [facility] - STREET SWEEPER [address] [place] [phone] [place] [address] [place] [address] Refill Request Social History Tobacco Use Types Packs/Day Years Used Date Smoking Tobacco: Never Smokeless Tobacco: Never Alcohol Use Standard Drinks/Week Comments Yes 0 (1 standard drink = 0.6 oz pur e alcohol) sometimes Comments No Sex and Gender Information Value Date Recorded Sex Assigned at Not on file Legal Sex Female 4:47 AM FARM ASSISTANT Gender Identity Not on file Sexual Orientation [...] on filedocumented in this encounter Care Teams Power Plant Supervisor Relationship Specialty Start Date End Date Renea Saenz MD PCP - General 06/18/08 11/16/20 Melinda Jay MD [address] [place] [address] PCP - General Family Medicine 11/17/20 10/12/21 [place] [address] [place] [address] PCP - General Family Medicine 10/14/21 02/09/23 Maddie [place] - PCP - General 02/10/23 Dawit Rivas MD [address] [place] [id number] Glass Bulb Silverer Obstetrics and Gynecology 01/02/12 Pamela Vazquez, LABEL SEWER-SENIOR PROGRAM ANALYST [address] [place] [address] Nurse Practitioner 12/01/20 10/12/21 documented as of this encounter
--- OUTSIDE RECORDS SUMMARY | 2025-06-09 08:14 | XMS_ITS | Encounter Summary ---
Author Organization [facility] Address [address] [place] [address] Care Team Providers Care Bark Fitter Name Role Phone Renea Saenz MD Primary Care Provider [phone] Dawit Rivas MD Unavailable Melinda Jay MD Primary Care Provider + [phone] Pamela Vazquez DIRECTOR SCRIPT-[facility] Unavailable [phone] Vineet Nuno MD Primary Care Provider [phone] PcpMaddie [facility] Primary Care Provid er Unavailable Renea Saenz MD Unavailable [phone] Reason for Visit * Reason Comments Refill Request Encounter Details Date Type Department Care Team (Late st Contact Info) Description 11/14/2017 Refill [facility] - METAL CANS SUPERVISOR [address] [place] [id number] [place] [address] [place] [address] Refill Request Social History Tobacco Use Types Packs/Day Years Used Date Smoking Tobacco: Never Smokeless Tobacco: Never Alcohol Use Standard Drinks/Week Comments Yes 0 (1 standard drink = 0.6 oz pur e alcohol) sometimes Comments No Sex and Gender Information Value Date Recorded Sex Assigned at Not on file Legal Sex Female 4:47 AM SENIOR PLANNER Gender Identity Not on file Sexual Orientation [...] on filedocumented in this encounter Care Teams Bark Fitter Relationship Specialty Start Date End Date Renea Saenz MD PCP - General 06/18/08 11/16/20 [place] [address] [place] [address] PCP - General Family Medicine 11/17/20 10/12/21 [place] [address] [facility] [place] [address] PCP - General Family Medicine 10/14/21 02/09/23 PcpMaddie [facility] PCP - General 02/10/23 Renea Saenz MD [address] [place] [address] [place] [address] PCP - Attributed-[employer] 09/08/17 03/07/18 [place] [address] [place] [address] Sales Associate Fishing Obstetrics and Gynecology 01/02/12 Pamela Vazquez, DIRECTOR SCRIPT-FLUME MAKER [address] [place] [address] Nurse Practitioner 12/01/20 10/12/21 documented as of this encounter
--- OUTSIDE RECORDS SUMMARY | 2025-06-09 08:14 | XMS_ITS | Encounter Summary ---
Author Organization [facility] Address [address] [facility] [place] [address] Care Team Providers Care Coater Associate Name Role Phone Renea Saenz MD Primary Care Provider [phone] Dawit Rivas MD Unavailable Melinda Jay MD Primary Care Provider + [phone] Pamela Vazquez CHANNEL PROGRAM MANAGER-EMPLOYEE HEALTH NURSE Unavailable [phone] Vineet Nuno MD Primary Care Provider [phone] PcpMaddie [facility] Primary Care Provid er Unavailable Renea Saenz MD Unavailable [phone] Encounter Details Date Type Department Care Team (Late st Contact Info) Description 01/29/2013 SS Outpatient Visit EXTERNAL NON-[facility]PT Melinda Jay MD [address] [facility] [address] [place] [address] Social History Tobacco Use Types Packs/Day Years Used Date Smoking Tobacco: Never Smokeless Tobacco: Never Alcohol Use Standard Drinks/Week Comments Yes 0 (1 standard drink = 0.6 oz pur e alcohol) sometimes Comments No Sex and Gender Information Value Date Recorded Sex Assigned at Not on file Legal Sex Female 4:47 AM MELT SUPERVISOR Gender Identity Not on file Sexual Orientation Not on file documented as of this encounter Plan of Treatment Not on file documented as of this encounter Visit Diagnoses Not on filedocumented in this encounter Care Teams Coater Associate Relationship Specialty Start Date End Date Renea Saenz MD PCP - General 06/18/08 11/16/20 Melinda Jay MD [address] [place] [address] PCP - General Family Medicine 11/17/20 10/12/21 [place] [address] [place] [phone] PCP - General Family Medicine 10/14/21 02/09/23 PcpMaddie - PCP - General 02/10/23 Renea Saenz MD [address] [place] [phone] PCP - Attributed-[place] Commercial 09/08/17 03/07/18 Dawit Rivas MD [address] [place] [address] Button Cutter Obstetrics and Gynecology 01/02/12 Pamela Vazquez, CHANNEL PROGRAM MANAGER-EMPLOYEE HEALTH NURSE [address] [place] [address] Nurse Practitioner 12/01/20 10/12/21 documented as of this encounter
--- OUTSIDE RECORDS SUMMARY | 2025-06-09 08:14 | XMS_ITS | Clinical Summary ---
Author Organization [facility] Address [address] [facility] [place] [address] Care Team Providers Care Delicatessen Department Manager Name Role Phone Dawit Rivas MD Unavailable Pcp, Maddie [facility] Primary Care Provid er Unavailable Source Comments [facility],non-owned Affiliates and Associated Physician Practices is amultiple site organization consisting of ambulatory clinics and hospital sitesin [place], [place], [place] and [place]. This disclosure is being madepursuant to the Care Everywhere program and may not contain all information available regarding this patient. Last updated 18.[facility] Allergies No known active allergies Medications * Be aware that medications may not be up to date on this document. Alwaysverify current medications with the patient. ibuprofen (MOTRIN) 200 MG tablet Take by mouth as needed Active acetaminophen (TYLENOL) 500 MG tablet Take 1 (one) tablet by mouth every 4 hours as needed for Fever or Pain Maximum allowable Acetaminophen amount = 4 Grams (4000 mg) / 24 hours. Active cetirizine (ZYRTEC) 10 MG tablet Take 1 tablet by mouth once daily 90 tablet 4 01/02/20 20 Active vitamin D, ergocalciferol, (DRISDOL) 1.25 MG (12548 UT) capsuleIndicatio ns:Vitamin D deficiency Take 1 (one) capsule by mouth every 7 days 12 capsule 2 10/15/19 22 Active albuterol-ipratr opium (Duo-Neb) 0.5-2.5 (3) MG/3ML nebulizer solutionIndicati ons:Moderate persistent asthma without complication (HCC) Inhale 3 mL by mouth every 6 hours as needed for Shortness of Breath or Wheezing 360 mL 5 09/29/19 23 Active albuterol HFA (Proventil HFA) 108 (90 Base) MCG/ACT inhalerIndicatio ns:Moderate persistent asthma without complication (HCC) Inhale 2 (two) puffs by mouth every 4 hours as needed for Shortness of Breath, Wheezing or Cough 18 g 2 09/29/19 23 Active montelukast (Singulair) 10 MG tabletIndication s:Moderate persistent asthma without complication (HCC) Take 1 (one) tablet by mouth once daily 90 tablet 4 09/29/19 23 Active fluticasone-salm eterol 113-14 MCG/ACT inhalerIndicatio ns:Moderate persistent asthma without complication (HCC) Inhale 1 (one) puff by mouth 2 times daily 1 Each 5 09/30/19 23 Active valACYclovir (Valtrex) 1 GM tabletIndication s:Herpes Take 1 (one) tablet by mouth once daily 30 tablet 11 01/21/20 23 Active nortriptyline (Pamelor) 25 MG capsule Take 1 (one) capsule by mouth at bedtime 90 capsule 3 08/25/19 24 Active rizatriptan (Maxalt) 10 MG tablet Take 1 tab by mouth once at first sign of migraine. May repeat one time after 2 hours if needed. 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 (AF LURIA, FLUZONE TRIVALENT; 6MO+) (IIV3) 03/30/2009 INFLUENZA VACCINE 04/25/2008 INFLUENZA VACCINE, QUADR. (F LUZONE; FLULAVAL; FLUARIX; AFLURIA QUADRIVALENT; 6MO+), 0.5 ML (IIV4) 05/11/2016 PNEUMOCOCCAL PPSV23 10/14/2021 Family History Medical History Relation Name Comments Hypertension Maternal Grandfather Hypertension Maternal Grandmother Hypertension Mother Relation Name Status Comments Maternal Grandfather Maternal Grandmother Mother Social History Tobacco Use Types Packs/Day Years Used Date Smoking Tobacco: Never Smokeless Tobacco: Never Tobacco Cessation:Counseling Given: Not Answered Alcohol Use Standard Drinks/Week Comments Yes 0 (1 standard drink = 0.6 oz pur e alcohol) sometimes PHQ-2 Answer Date Recorded PHQ2 TOTAL SCORE 0 09/28/2022 Comments No Sex and Gender Information Value Date Recorded Sex Assigned at Not on file Legal Sex Female 4:47 AM OFFSHORING MANAGER Gender Identity Not on file Sexual Orientation Not on file Last Filed Vital Signs Vital Sign Reading Time Taken Comments Blood Pressure 122/78 08/25/2023 11:50 AM OFFSHORING MANAGER Pulse 93 08/25/2023 11:50 AM OFFSHORING MANAGER Temperature 36.8 C (98.3 F) 09/28/2022 1:03 PM CDT Respiratory Rate 18 02/04/2020 9:44 AM CDT Oxygen Saturation 98% 08/25/2023 11:50 AM OFFSHORING MANAGER Inhaled Oxygen Concentration - - Weight 74.8 kg (165 lb) 08/03/2024 8:57 AM OFFSHORING MANAGER Height 152.4 cm (5') 08/03/2024 8:57 AM OFFSHORING MANAGER Body Mass Index 32.22 08/03/2024 8:57 AM OFFSHORING MANAGER Plan of Treatment Health Maintenance Due Date Last Done Comments DTAP/TDAP/TD VACCINES (1 - Tdap) 2003 HEPATITIS B VACCINE (1 of 3 - 19+ 3-dose series) 2003 HPV VACCINE (1 - 3-dose SCDM series) 2011 PAP SMEAR 02/02/2018 02/02/2015, 11/2014, 03/24/2014, Additional history exists PNEUMOCOCCAL VACCINE (2 of 2 - PCV) 10/14/2022 10/14/2021 DEPRESSION SCREENING 07/17/2024 09/28/2022, 10/15/19 Cervical Cancer Screening 02/23/2025 PAP with HPV 02/23/2025 02/24/2020 (Done Outside Per Report), 02/02/2015, 07/21/2014, Additional history exists COVID-19 VACCINE (3 - season) 2025 04/26/2021, 04/04/2021 INFLUENZA VACCINE (#1) 2025 6, 03/30/2009, 04/25/2008 LIPID TESTING 12/18/2025 12/18/2020, 10/23/2014 MAMMOGRAM 08/03/2026 08/03/2024, 12/2022, 10/19/2021 ZOSTER VACCINE (1 of 2) 2034 HEPATITIS C SCREENING Completed 02/06/2015 HIV SCREENING Completed 02/06/2015 HIB VACCINE Aged Out No longer eligi ble based on patient's age to complete this topic MENINGOCOCCAL (Group B) VACCINE SHARED DECISION-MAKING Aged Out No longer eligible based on patient's age to complete this topic MENINGOCOCCAL GROUPS A/C/Y/W VACCINE Aged Out No longer eligible based on patient's age to complete this topic Procedures Procedure Name Priority Date/Time Associated Diagnosis Comments MAMMO BILAT SCREENING W RICHARD Routine 08/03/2024 8:59 AM OFFSHORING MANAGER Encounter for screening mammogram for malignant neoplasm of breast LIPID PROFILE W TCHOL/HDL Routine 12/18/2020 9:16 AM CDT Annual physical exam HEPATITIS C ANTIBODY 02/06/2015 3:27 PM CDT HIV-1 HIV-2 ANTIGEN/ANTIBODY W RFLX 02/06/2015 3:27 PM CDT PAP THINPREP IG CT+NG+ HPV MRNA E6/E7 Routine 02/02/2015 6:05 PM CDT Routine gynecological examination Screening examination for venereal disease from Last 3 Months or Most Recently Relevant to Health Maintenance Results * Mammo Bilat Screening W Richard (08/03/2024 8:59 AM OFFSHORING MANAGER) Anatomical Region Laterality Modality Breast Bilateral Mammography 08/04/2024 1:35 PM OFFSHORING MANAGER Impressions 08/04/2024 1:36 PM OFFSHORING MANAGER IMPRESSION: Annual screening mammography is recommended. OVERALL FINAL ASSESSMENT: BI-RADS Category 2: Benign. > Interpreting Provider: Hafsa Mota MD on 08/04/2024 1:36 PM Narrative 08/04/2024 1:36 PM OFFSHORING MANAGER EXAMINATION: BILATERAL DIGITAL SCREENING MAMMOGRAM AND BILATERAL BREAST TOMOSYNTHESIS HISTORY: Screening. COMPARISON: Serial examinations dating back to 10/19/2021. TECHNIQUE: BILATERAL digital breast tomosynthesis (DBT) and synthetic 2D digital mammogram images were obtained (bilateral craniocaudal and mediolateral oblique projections) including computer aided detection (CAD.) BREAST PARENCHYMAL COMPOSITION: Category C: The breasts are heterogeneously dense which may obscure small masses. MAMMOGRAM FINDINGS: There is no suspicious finding in either breast. Bilateral breast biopsy clips are again noted. Overall, there has been no significant interval change. us Mini Miller MD MAMMO ORDERABLES Final Result * LIPID PROFILE W TCHOL/HDL (12/18/2020 9:16 AM CDT) Cholesterol 165 <200 mg/dL [facility] INSURANCE BILL Triglycerides 135 <150 mg/dL [facility] INSURANCE BILL HDL Cholesterol 57 >40 mg/dL [facility] INSURANCE BILL VLDL Calculated 27 <=30 mg/dL [facility] INSURANCE BILL LDL Calculated 81 <130 mg/dL [facility] INSURANCE BILL Comment:LDL/HDL RATIO BLOOD ([facility]) 1.4 <5.0 Cholesterol/HDL Ratio 2.9 <4.5 [facility] INSURANCE BILL Comment:FASTING Blood BLOOD SPECIMEN / Unknown 12/18/2020 9:16 AM CDT 12/18/2020 Narrative Resulting Agency Comment Lab Testing performed at: [facility] [address] [place] [id number] us Pamela Vazquez APRN-VP INFORMATICS LAB - CHEMISTRY ORDERABLES Final Result [facility] INSURANCE BILL [address] [place] [address] * HIV-1 HIV-2 ANTIGEN/ANTIBODY W RFLX (PO) (02/06/2015 3:27 PM CDT) HIV Screen 4th Generation w Reflex NON-REACT NEWTON NON-REACT NEWTON [facility] Comment: A Nonreactive HIV Ag/Ab result does not exclude HIV infection since the time frame for seroconversion is variable. If acute HIV infection is suspected, a HIV-1 RNA Qualitative TMA test is recommended. PLEASE NOTE: This information has been disclosed to you from records whose confidentiality may be protected by state law. If your state requires such protection, then the state law prohibits you from making any further disclosure of the information without the specific written consent of the person to whom it pertains, or as otherwise permitted by law. A general authorization for the release of medical or other information is NOT sufficient for this purpose. The performance of this assay has not been clinically validated in patients less than 2 years old. For additional information please refer to http://education.Dabble DB/faq/HCG919 (This link is being provided for informational/ educational purposes only.) Test Performed at: [facility] [place] [address] YUNI MOSLEY DO,MPH 02/06/2015 3:27 PM CDT 02/06/2015 3:27 PM CDT us Dawit Rivas MD LAB - SEROLOGY ORDERABLES Final Result [facility] [address] [place] [address] * HEPATITIS C ANTIBODY (02/06/2015 3:27 PM CDT) Hepatitis C Antibody NON-REACTI VE NON-REACT NEWTON [facility] Signal to Cut-Off 0.01 <1.00 [facility] Comment: Test Performed at: [facility] [address] YUNI MOSLEY DO,MPH 02/06/2015 3:27 PM CDT 02/06/2015 3:27 PM CDT Dawit Rivas MD LAB - CHEMISTRY ORDERABLES Final Result [address] [address] * PAP THIN PREP IG CT+NG+ HPV MRNA E6/E7 (PO REF) (02/02/2015 6:05 PM CDT) Report Status [facility] Clinical Information [facility] Comment:Routine exam LMP [facility] Comment:INFORMATION NOT PROV IDED Previous Pap [facility] Comment:INFORMATION NOT PROV IDED Prev. BX [facility] Comment:INFORMATION NOT PROV IDED Source [facility] Comment:Information not prov ided Statement of Adequacy [facility] Comment: Satisfactory for evaluation. Endocervical/transformation zone component present. Age and/or menstrual status not provided General Categorization [facility] Interpretation/Resu lt [facility] Comment:Negative for intraep ithelial lesion or malignancy. Infection [facility] Comment [facility] Comment: This Pap test has been evaluated with computer assisted technology. Wedding Designer [facility] Comment:KAREN CULP(ASCP) Review Wedding Designer [facility] Pathologist [facility] Human papillomavirus mRNA E6 E7 Not Detected Not Detected [facility] Comment: This test was performed using the APTIMA HPV Assay ([employer] This assay detects E6/E7 viral messenger RNA (mRNA) from 14 high-risk HPV types (16,18,31,33,35,39,45,51,52,56,58,59,66,68). Chlamydia trachomatis RNA NOT DETECTED NOT DETECTED [facility] GC RNA NOT DETECTED NOT DETECTED [facility] Please Note [facility] Comment: This test was performed using the APTIMA COMBO2 Assay ([employer] The analytical performance characteristics of this assay, when used to test SurePath specimens have been determined by [employer]. Test Performed at: [facility] [address] ROSANGELA BARBA MD MICROSCOPIC CYTOLOGIC EXAMINATION OF SMEAR OF SPECIMEN FROM FEMALE GENITAL TRACT PREPARED USING PAPANICOLAOU TECHNIQUE / Unknown 02/02/2015 6:05 PM CDT 02/04/2015 8:59 AM CDT us Dawit Rivas MD LAB - PATHOLOGY/CYTOLOGY ORDERAB LES Final Result [facility] [address] [place] [address] from Last 3 Months or Most Recently Relevant to Health Maintenance Insurance SELF PAY NO INSURANCE Member Subscriber Plan / Payer (Ef fective for All Dates) Name:Tracy Calvillo Member ID:Not on file Relation to Subscriber:Not on file Name:TRACY CALVILLO Subscriber ID:Not on file (Home) Address: [address] [place] [id number] Payer ID:Not on file Group ID:Not on file Type:Self Pay Address: [facility] [address] [facility] Advance Directives Documents on File Type Date Recorded Patient Cold Type Composing Machine Operator Expl anation Adv Directive/Living Will/POA 03/09/2016 n/a * Full Code (Latest Code Status on File) Date Activated Date Inactivated Comments 08/26/2016 9:19 PM 08/27/2016 12:42 AM Care Teams Delicatessen Department Manager Relationship Specialty Start Date End Date PcpMaddie - PCP - General 02/10/23 [place] [address] [place] [address] Art Glass Setter Obstetrics and Gynecology 01/02/12
--- OUTSIDE RECORDS SUMMARY | 2025-06-09 08:14 | XMS_ITS | Clinical Summary ---
Author Organization [facility] Care Team Providers Care Retail Cashier Name Role Phone Unavailable Primary Care Provider Unavailabl e Social History Tobacco Use Types Packs/Day Years Used Date Smoking Tobacco: Never Assessed Comments Unknown Sex and Gender Information Value Date Recorded Sex Assigned at Not on file Legal Sex Female 12:57 PM PLANT SPRAYER Gender Identity Not on file Sexual Orientation Not on file Plan of Treatment Health Maintenance Due Date Last Done Comments Hepatitis C Virus (HCV) Screening 1984 TdaP Immunization 1984 Hepatitis B Immunization (1 of 3 - 19+ 3-dose series) 2003 Pap Smear 2005 Human Papillomavirus (HPV) Immunization (1 - 3-dose SCDM series) 2011 Cervical Cancer Screening (CCS) 2014 HPV/Cotest 2014 Influenza Immunization (#1) 2025 SARS-COV-2 Immunization ( season) 2025 04/26/2021, 04/04/2021 Respiratory Syncytial Virus (RSV) Immunization (Adult) (1 - 1-dose 75+ series) 2059 Meningococcal Immunization (ACWY) Aged Out No longer eligible b ased on patient's age to complete this topic Pneumococcal Immunization Combined Aged Out No longer eligible b ased on patient's age to complete this topic Rotavirus Immunization Aged Out No lo nger eligible based on patient's age to complete this topic
--- OUTSIDE RECORDS SUMMARY | 2025-06-09 08:14 | XMS_ITS | Encounter Summary ---
Author Organization [facility] Address [address] [facility] [place] [address] Care Team Providers Care Specialty Person Name Role Phone Renea Saenz MD Primary Care Provider [phone] Dawit Rivas MD Unavailable Melinda Jay MD Primary Care Provider + [phone] Pamela Vazquez LITIGATION CLAIM REPRESENTATIVE-[facility] Unavailable [phone] Vineet Nuno MD Primary Care Provider [phone] PcpMaddie [facility] Primary Care Provid er Unavailable Renea Saenz MD Unavailable [phone] Reason for Visit * Reason Comments Refill Request Encounter Details Date Type Department Care Team (Late st Contact Info) Description 10/03/2017 Refill [facility] Group - CHIEF OF HOSPITAL MEDICINE [address] [place] [id number] [place] [address] [place] [address] Refill Request Social History Tobacco Use Types Packs/Day Years Used Date Smoking Tobacco: Never Smokeless Tobacco: Never Alcohol Use Standard Drinks/Week Comments Yes 0 (1 standard drink = 0.6 oz pur e alcohol) sometimes Comments No Sex and Gender Information Value Date Recorded Sex Assigned at Not on file Legal Sex Female 4:47 AM COMMUNITY INTEGRATION SPECIALIST Gender Identity Not on file Sexual Orientation [...] on filedocumented in this encounter Care Teams Specialty Person Relationship Specialty Start Date End Date Renea Saenz MD PCP - General 06/18/08 11/16/20 [place] [address] [place] [address] PCP - General Family Medicine 11/17/20 10/12/21 [place] [address] [facility] [facility] [place] [address] PCP - General Family Medicine 10/14/21 02/09/23 PcpMaddie [facility] PCP - General 02/10/23 Renea Saenz MD [address] [place] [address] [place] [address] PCP - Attributed-[place] Commercial 09/08/17 03/07/18 [place] [address] [place] [address] Industrial Furnace Fabricator Obstetrics and Gynecology 01/02/12 Pamela Vazquez, LITIGATION CLAIM REPRESENTATIVE-SANITATION LEAD [address] [place] [address] Nurse Practitioner 12/01/20 10/12/21 documented as of this encounter
--- NOTE | 2025-06-09 08:26 | ED.GENADULT ---
HPI - General Adult General Chief complaint: Back Pain/Injury Stated complaint: back pain on left side Time Seen by Provider: 06/09/25 08:16 History of Present Illness HPI narrative: 39-year-old female present to the emergency department for evaluation for left sided back pain and shoulder pain. Patient states she woke up with the symptoms. Patient denies any chest pain or shortness of breath. Patient states pain is worsened with movement. Patient took a single dose of ibuprofen and a single dose of Tylenol and states this is not resolve her pain. Patient denies any specific falls or injuries. Page denies any significant past medical history. Related Data Home Medications ?Medication ?Instructions ?Recorded ?Confirmed ?Last Taken ?Type nortriptyline 10 mg capsule 10 mg PO QHS 04/24/23 07/02/24 Unknown History Allergies Allergy/AdvReac Type Severity Reaction Status Date / Time No Known Allergies Allergy Verified 06/09/25 08:16 Review of Systems Review of Systems: All systems reviewed & are unremarkable except as noted in HPI and below PMFSH Past Medical History Medical History History of miscarriage History of herpes evaluations Asthma Seasonal allergies Migraine History of CVA (cerebrovascular accident) without residual deficits Surgical History Surgical History [place] teeth removed History of elective H/O tubal ligation History of 2 sections Family History Family History Father Asthma Mother Alcoholism Other Hypertension Social History Social History Smoking status: Never smoker Alcohol intake: current Substance use: never Substance use type: does not use Lack of Transportation: No Lack of Food: Never True Current Housing: I Have Housing Concerned About Future Housing: No Difficulty Paying Gas/Electric Bills: No Difficulty Paying for Meds: No Currently Unemployed: No Education: Decline to Answer Difficulty w/ Childcare or Family Care: No Gender identity (if verbalized by the patient): Female Spiritual care concerns: No Agree to blood products: Yes Exam Narrative: APPEARANCE: Well appearing, no pain, no distress, well-nourished. HEAD: normocephalic, atraumatic. EYES: PERRLA/EOMI, conjunctivae clear. NOSE: Normal no drainage EARS:TMS clear with good light reflex. THROAT: Pharynx clear, no exudate. NECK: Supple. No adenopathy, no masses. RESPIRATORY: lungs are clear to auscultation CARDIOVASCULAR: Regular rate and rhythm without murmurs rubs or gallops. ABDOMINAL: Soft, nontender, nondistended, normal bowel sounds MUSCULOSKELETAL: tenderness to left trapezius, no midline tenderness, NEURO: Alert. Cranial nerves II through XII intact. Good gait. Good coordination SKIN: Warm, dry. Normal Color Course Vital Signs Vital signs: Vital Signs Temperature 98.1 F 06/09/25 08:11 Pulse Rate 100 06/09/25 08:11 Respiratory Rate 16 06/09/25 08:11 Blood Pressure 127/80 06/09/25 08:11 Pulse Oximetry 100 06/09/25 08:11 Temperature 98.1 F 06/09/25 08:11 Pulse Rate 100 06/09/25 08:11 Respiratory Rate 16 06/09/25 08:11 Blood Pressure 127/80 06/09/25 08:11 Pulse Oximetry 100 06/09/25 08:11 Medical Decision Making MDM Narrative Medical decision making narrative: 39-year-old female present to the emergency department for evaluation for left trapezius tightness. Patient denies any midline back pain. Patient denies any acute neurologic changes. Do suspect muscular strain/torticollis. Patient was provided medication for pain control including Flexeril for muscle spasm. Patient was comfortable the plan for discharge and close follow-up. All questions concerns were addressed. Differential Diagnosis Differential Diagnosis: Trapezius strain, muscular strain, torticollis Vital Signs Vital Signs: Vital Signs Temperature 98.1 F 06/09/25 08:11 Pulse Rate 100 06/09/25 08:11 Respiratory Rate 16 06/09/25 08:11 Blood Pressure 127/80 06/09/25 08:11 Pulse Oximetry 100 06/09/25 08:11 Temperature 98.1 F 06/09/25 08:11 Pulse Rate 100 06/09/25 08:11 Respiratory Rate 16 06/09/25 08:11 Blood Pressure 127/80 06/09/25 08:11 Pulse Oximetry 100 06/09/25 08:11 Discharge Plan Discharge Clinical Impression: Strain of left trapezius muscle Patient Disposition: Home Condition: Stable Instructions: Antibiotic Form, Back Pain (ED) Additional Instructions: Flexeril for muscle spasm, scheduled naproxen for pain control. Have close follow-up with your primary care physician. Patient Language: Cuban Prescriptions: New cyclobenzaprine 10 mg tablet 10 mg PO BID PRN (Reason: muscle spasm) Qty: 14 0RF naproxen [Naprosyn] 500 mg tablet 500 mg PO BID 7 Days Qty: 14 0RF No Action prednisone 20 mg tablet 60 mg PO DAILY Qty: 15 0RF albuterol sulfate [Ventolin HFA] 90 mcg/actuation HFA aerosol inhaler 2 puff inhalation QID PRN (Reason: shortness of breath or wheezing) Qty: 8.5 0RF benzonatate 200 mg capsule 200 mg PO TID PRN (Reason: cough) Qty: 30 0RF nortriptyline 10 mg capsule 10 mg PO QHS tranexamic acid 650 mg tablet 1,300 mg PO TID PRN (Reason: Heavy menstrual periods) Qty: 30 0RF Rx Instructions: Do not take more than five days in a row. fluticasone propion-salmeterol [Wixela Inhub] 250-50 mcg/dose blister with device 1 inh inhalation BID Qty: 60 0RF valacyclovir [Valtrex] 1 gram tablet 1,000 mg PO DAILY Qty: 90 3RF Rx Instructions: Take 1 p.o. q.12 hours for 3 days before onset of symptoms Contrave 8-90 mg tablet extended release See Rx Instructions PO .COMPLEX Qty: 120 1RF Rx Instructions: Take 1 tablet daily for 7 days then 1 bid for 7 days 2 AM and 1 PM for 7 days then 2 bid thereafter orally; albuterol sulfate 2.5 mg /3 mL (0.083 %) solution for nebulization 2.5 mg inhalation Q6H PRN (Reason: shortness of breath or wheezing) Qty: 75 0RF albuterol sulfate 90 mcg/actuation HFA aerosol inhaler 1 inh inhalation Q4H PRN (Reason: shortness of breath or wheezing) Qty: 8.5 2RF Follow-up/Referrals: Paul,MD Mini [Primary Care Provider, Family Practice]
--- OUTSIDE RECORDS SUMMARY | 2025-06-09 08:45 | XMS_ITS | Clinical Summary ---
Author Organization [facility] Care Team Providers Care Bowling Floor Desk Clerk Name Role Phone Unavailable Primary Care Provider Unavailabl e Social History Tobacco Use Types Packs/Day Years Used Date Smoking Tobacco: Never Assessed Comments Unknown Sex and Gender Information Value Date Recorded Sex Assigned at Not on file Legal Sex Female 12:57 PM MANUAL EQUIPMENT MECHANIC Gender Identity Not on file Sexual Orientation [...]
--- OUTSIDE RECORDS SUMMARY | 2025-06-09 08:45 | XMS_ITS | Encounter Summary ---
Author Organization [facility] Address [address] [place] [address] Care Team Providers Care Street Commissioner Name Role Phone Renea Saenz MD Primary Care Provider [phone] Dawit Rivas MD Unavailable Melinda Jay MD Primary Care Provider + [phone] Pamela Vazquez TRANSIT BUS OPERATOR-[facility] Unavailable [phone] Vineet Nuno MD Primary Care Provider [phone] PcpMaddie [facility] Primary Care Provid er Unavailable Renea Saenz MD Unavailable [phone] Reason for Visit * Reason Comments Refill Request Encounter Details Date Type Department Care Team (Late st Contact Info) Description 11/20/2017 Refill [facility] - MANAGER LEASING [address] [place] [id number] [place] [address] [place] [address] Refill Request Social History Tobacco Use Types Packs/Day Years Used Date Smoking Tobacco: Never Smokeless Tobacco: Never Alcohol Use Standard Drinks/Week Comments Yes 0 (1 standard drink = 0.6 oz pur e alcohol) sometimes Comments No Sex and Gender Information Value Date Recorded Sex Assigned at Not on file Legal Sex Female 4:47 AM SCOURING TRAIN OPERATOR Gender Identity Not on file Sexual Orientation [...] on filedocumented in this encounter Care Teams Street Commissioner Relationship Specialty Start Date End Date Renea Saenz MD PCP - General 06/18/08 11/16/20 [place] [address] [place] [address] PCP - General Family Medicine 11/17/20 10/12/21 [place] [address] [address] [facility] [place] [address] PCP - General Family Medicine 10/14/21 02/09/23 PcpMaddie [facility] PCP - General 02/10/23 Renea Saenz MD [address] [place] [address] [place] [address] PCP - Attributed-[place] [employer] 09/08/17 03/07/18 [place] [address] [place] [address] Compliance Clerk Obstetrics and Gynecology 01/02/12 Pamela Vazquez, TRANSIT BUS OPERATOR-CARBURETOR REBUILDER [address] [place] [address] Nurse Practitioner 12/01/20 10/12/21 documented as of this encounter
--- OUTSIDE RECORDS SUMMARY | 2025-06-09 08:45 | XMS_ITS | Encounter Summary ---
Author Organization [facility] Address [address] [facility] [place] [address] Care Team Providers Care Pump Servicer Helper Name Role Phone Renea Saenz MD Primary Care Provider [phone] Dawit Rivas MD Unavailable Melinda Jay MD Primary Care Provider + [phone] Pamela Vazquez POULTRY INSPECTOR-PRUNER Unavailable [phone] Vineet Nuno MD Primary Care Provider [phone] PcpMaddie [facility] Primary Care Provid er Unavailable Reason for Visit * Reason Comments Refill Request Encounter Details Date Type Department Care Team (Late st Contact Info) Description 08/11/[address] [facility] - BUSINESS ASSISTANT [address] [place] [phone] [place] [address] [place] [address] Refill Request Social History Tobacco Use Types Packs/Day Years Used Date Smoking Tobacco: Never Smokeless Tobacco: Never Alcohol Use Standard Drinks/Week Comments Yes 0 (1 standard drink = 0.6 oz pur e alcohol) sometimes Comments No Sex and Gender Information Value Date Recorded Sex Assigned at Not on file Legal Sex Female 4:47 AM DRAIN TILE PRESS OPERATOR Gender Identity Not on file Sexual [...] on filedocumented in this encounter Care Teams Pump Servicer Helper Relationship Specialty Start Date End Date Renea Saenz MD PCP - General 06/18/08 11/16/20 Melinda Jay MD [address] [place] [address] PCP - General Family Medicine 11/17/20 10/12/21 [place] [address] [place] [address] PCP - General Family Medicine 10/14/21 02/09/23 Maddie Moctezuma - PCP - General 02/10/23 Dawit Rivas MD [address] [place] [id number] Cold Strip Feeder Obstetrics and Gynecology 01/02/12 Pamela Vazquez, POULTRY INSPECTOR-PRUNER [address] [place] [address] Nurse Practitioner 12/01/20 10/12/21 documented as of this encounter
--- OUTSIDE RECORDS SUMMARY | 2025-06-09 08:45 | XMS_ITS | Encounter Summary ---
Author Organization [facility] Address [address] [place] [address] Care Team Providers Care Pin Drafter Name Role Phone Renea Saenz MD Primary Care Provider [phone] Dawit Rivas MD Unavailable Melinda Jay MD Primary Care Provider + [phone] Pamela Vazquez CRM MARKETING ANALYST-BOX MAKER WOOD Unavailable [phone] Vineet Nuno MD Primary Care Provider [phone] PcpMaddie [facility] Primary Care Provid er Unavailable Reason for Visit * Reason Comments Refill Request Encounter Details Date Type Department Care Team (Late st Contact Info) Description 12/08/2018 Refill [facility] - ETHICS INSTRUCTOR [address] [place] [phone] [place] [address] [place] [address] Refill Request Social History Tobacco Use Types Packs/Day Years Used Date Smoking Tobacco: Never Smokeless Tobacco: Never Alcohol Use Standard Drinks/Week Comments Yes 0 (1 standard drink = 0.6 oz pur e alcohol) sometimes Comments No Sex and Gender Information Value Date Recorded Sex Assigned at Not on file Legal Sex Female 4:47 AM PRINTING SALES REPRESENTATIVE Gender Identity Not on file Sexual Orientation [...] on filedocumented in this encounter Care Teams Pin Drafter Relationship Specialty Start Date End Date Renea Saenz MD PCP - General 06/18/08 11/16/20 Melinda Jay MD [address] [place] [address] PCP - General Family Medicine 11/17/20 10/12/21 [place] [address] [place] [address] PCP - General Family Medicine 10/14/21 02/09/23 Maddie Moctezuma - PCP - General 02/10/23 Dawit Rivas MD [address] [place] [id number] Cost And Risk Analysis Manager Obstetrics and Gynecology 01/02/12 Pamela Vazuqez, CRM MARKETING ANALYST-BOX MAKER WOOD [address] [place] [address] Nurse Practitioner 12/01/20 10/12/21 documented as of this encounter
--- OUTSIDE RECORDS SUMMARY | 2025-06-09 08:45 | XMS_ITS | Encounter Summary ---
Author Organization [facility] Address [address] [facility] [place] [address] Care Team Providers Care Mutual Fund Accountant Name Role Phone Renea Saenz MD Primary Care Provider [phone] Dawit Rivas MD Unavailable Melinda Jay MD Primary Care Provider + [phone] Pamela Vazquez WAIT STAFF-[facility] Unavailable [phone] Vineet Nuno MD Primary Care Provider [phone] PcpMaddie [facility] Primary Care Provid er Unavailable Renea Saenz MD Unavailable [phone] Reason for Visit * Reason Comments Refill Request Encounter Details Date Type Department Care Team (Late st Contact Info) Description 10/03/2017 Refill [facility] - LOW VOLTAGE ELECTRICIAN [address] [place] [phone] [place] [address] [place] [address] Refill Request Social History Tobacco Use Types Packs/Day Years Used Date Smoking Tobacco: Never Smokeless Tobacco: Never Alcohol Use Standard Drinks/Week Comments Yes 0 (1 standard drink = 0.6 oz pur e alcohol) sometimes Comments No Sex and Gender Information Value Date Recorded Sex Assigned at Not on file Legal Sex Female 4:47 AM PLANT FACILITIES TECHNICIAN Gender Identity Not on file Sexual Orientation [...] on filedocumented in this encounter Care Teams Mutual Fund Accountant Relationship Specialty Start Date End Date Renea Saenz MD PCP - General 06/18/08 11/16/20 [place] [address] [place] [address] PCP - General Family Medicine 11/17/20 10/12/21 [place] [address] [place] [address] PCP - General Family Medicine 10/14/21 02/09/23 PcpMaddie [facility] PCP - General 02/10/23 Renea Saenz MD [address] [place] [address] [place] [address] PCP - Attributed-[place] [employer] 09/08/17 03/07/18 [place] [address] [place] [address] Recordist Obstetrics and Gynecology 01/02/12 Pamela Vazquez, WAIT STAFF-ROUTE SALESMAN AND DRIVER [address] [place] [address] Nurse Practitioner 12/01/20 10/12/21 documented as of this encounter
--- OUTSIDE RECORDS SUMMARY | 2025-06-09 08:45 | XMS_ITS | Encounter Summary ---
Author Organization [facility] Address [address] [place] [address] Care Team Providers Care Bill Checker Name Role Phone Renea Saenz MD Primary Care Provider [phone] Dawit Rivas MD Unavailable Melinda Jay MD Primary Care Provider + [phone] Pamela Vazquez MANAGER TERMINAL-PRACTICE CONSULTANT Unavailable [phone] Vineet Nuno MD Primary Care Provider [phone] Pcp, Maddie Davis [facility] Primary Care Provid er Unavailable Renea Saenz MD Unavailable [phone] Encounter Details Date Type Department Care [...] on file Legal Sex Female 4:47 AM NUTRITIONIST PUBLIC HEALTH Gender Identity Not on file Sexual Orientation Not on file documented as of this encounter Functional Status * Is person deaf or have serious hearing difficulty? Answer Date of Assessment Author No 08/21/2013 9:47 AM NUTRITIONIST PUBLIC HEALTH Lindsay Bell RN * Is person blind [...] on filedocumented in this encounter Care Teams Bill Checker Relationship Specialty Start Date End Date Renea Saenz MD PCP - General 06/18/08 11/16/20 Melinda Jay MD [address] [place] [address] PCP - General Family Medicine 11/17/20 10/12/21 [place] [address] [place] [address] PCP - General Family Medicine 10/14/21 02/09/23 PcpMaddie - PCP - General 02/10/23 Renea Saenz MD [address] [place] [address] PCP - Attributed-[place] Commercial 09/08/17 03/07/18 Dawit Rivas MD [address] [place] [address] Gymnastics Coach Obstetrics and Gynecology 01/02/12 Pamela Vazquez, RIZWAN-PRACTICE CONSULTANT [address] [place] [address] Nurse Practitioner 12/01/20 10/12/21 documented as of this encounter
--- OUTSIDE RECORDS SUMMARY | 2025-06-09 08:45 | XMS_ITS | Clinical Summary ---
Author Organization [facility] Address [address] [place] [address] Phone Care Team Providers Care Nursery Teacher Name Role Phone Unavailable Primary Care Provider [...] INFLUENZA VACCINE (#1) 2025 05/11/2016, 2008 Insurance [facility] BLUE PREFERRED
--- OUTSIDE RECORDS SUMMARY | 2025-06-09 08:45 | XMS_ITS | Clinical Summary ---
Author Organization [facility] Address [address] [facility] [place] [address] Care Team Providers Care Asp Developer Name Role Phone Dawit Rivas MD Unavailable Pcp, Maddie [facility] Primary Care Provid er Unavailable Source Comments [facility],non-owned Affiliates and Associated Physician Practices is amultiple site organization consisting of ambulatory clinics and hospital sitesin [place], [place], [place] and [place]. This disclosure is being madepursuant to the Care Everywhere program and may not contain all information available regarding this patient. Last updated 18.[facility] Allergies No known active allergies Medications * [...] Active vitamin D, ergocalciferol, (DRISDOL) 1.25 MG (05329 UT) capsuleIndicatio ns:Vitamin D deficiency Take 1 [...] on file Legal Sex Female 4:47 AM CONCRETER Gender Identity Not on file Sexual Orientation Not on file Last Filed Vital Signs Vital Sign Reading Time Taken Comments Blood Pressure 122/78 08/25/2023 11:50 AM CONCRETER Pulse 93 08/25/2023 11:50 AM CONCRETER Temperature 36.8 C (98.3 F) 09/28/2022 1:03 PM CDT Respiratory Rate 18 02/04/2020 9:44 AM CDT Oxygen Saturation 98% 08/25/2023 11:50 AM CONCRETER Inhaled Oxygen Concentration - - Weight 74.8 kg (165 lb) 08/03/2024 8:57 AM CONCRETER Height 152.4 cm (5') 08/03/2024 8:57 AM CONCRETER Body Mass Index 32.22 08/03/2024 8:57 AM CONCRETER Plan of Treatment Health Maintenance Due Date [...] SCREENING W RICHARD Routine 08/03/2024 8:59 AM CONCRETER Encounter for screening mammogram for malignant neoplasm [...] Bilat Screening W Richard (08/03/2024 8:59 AM CONCRETER) Anatomical Region Laterality Modality Breast Bilateral Mammography 08/04/2024 1:35 PM CONCRETER Impressions 08/04/2024 1:36 PM CONCRETER IMPRESSION: Annual screening mammography is recommended. OVERALL FINAL ASSESSMENT: BI-RADS Category 2: Benign. > Interpreting Provider: Hafsa Mota MD on 08/04/2024 1:36 PM Narrative 08/04/2024 1:36 PM CONCRETER EXAMINATION: BILATERAL DIGITAL SCREENING MAMMOGRAM AND BILATERAL [...] [facility] INSURANCE BILL Comment:LDL/HDL RATIO BLOOD ([facility]) 1.4 <5.0 Cholesterol/HDL Ratio 2.9 <4.5 [facility] INSURANCE BILL Comment:FASTING Blood BLOOD SPECIMEN / Unknown 12/18/2020 9:16 AM CDT 12/18/2020 Narrative Resulting Agency Comment Lab Testing performed at: [facility] [address] [place] [id number] us Pamela Vazquez APRN-SIDE GLUER LAB - CHEMISTRY ORDERABLES Final Result [facility] INSURANCE BILL [address] [place] [address] * HIV-1 HIV-2 ANTIGEN/ANTIBODY W RFLX (PO) [...] old. For additional information please refer to http://education.StreetSpark/faq/LXQ842 (This link is being provided for informational/ educational purposes only.) Test Performed at: [facility] [place] [address] YUNI MOSLEY DO,MPH 02/06/2015 3:27 PM CDT 02/06/2015 3:27 PM CDT us Dawit Rivas MD LAB - SEROLOGY ORDERABLES Final Result [facility] [address] [place] [address] * HEPATITIS C ANTIBODY (02/06/2015 3:27 PM CDT) Hepatitis C Antibody NON-REACTI VE NON-REACT [place] Signal to Cut-Off 0.01 <1.00 [facility] Comment: Test Performed at: [facility] [address] YUNI MOSLEY DO,MPH 02/06/2015 3:27 PM CDT 02/06/2015 3:27 PM CDT Dawit Rivas MD LAB - CHEMISTRY ORDERABLES Final Result [address] [address] * PAP THIN PREP IG CT+NG+ HPV [...] has been evaluated with computer assisted technology. [facility] Comment:KAREN CULP(ASCP) Review [facility] Pathologist [facility] Human papillomavirus mRNA E6 E7 Not Detected Not Detected [facility] Comment: This test was performed using the APTIMA HPV Assay ([employer] This assay detects E6/E7 viral messenger RNA (mRNA) from 14 high-risk HPV types (16,18,31,33,35,39,45,51,52,56,58,59,66,68). Chlamydia trachomatis RNA NOT DETECTED NOT DETECTED [facility] GC RNA NOT DETECTED NOT DETECTED [facility] Please Note [facility] Comment: This test was performed using the APTIMA COMBO2 Assay ([employer] The analytical performance characteristics of this assay, when used to test [facility] specimens have been determined by [facility]. Test Performed at: [facility] [address] ROSANGELA BARBA MD MICROSCOPIC CYTOLOGIC EXAMINATION OF SMEAR OF SPECIMEN FROM FEMALE GENITAL TRACT PREPARED USING PAPANICOLAOU TECHNIQUE / Unknown 02/02/2015 6:05 PM CDT 02/04/2015 8:59 AM CDT us Dawit Rivas MD LAB - PATHOLOGY/CYTOLOGY ORDERAB LES Final Result [facility] [address] [place] [address] from Last 3 Months or Most Recently Relevant to Health Maintenance Insurance SELF PAY NO INSURANCE Member Subscriber Plan / Payer (Ef fective for All Dates) Name:Tracy Calvillo Member ID:Not on file Relation to Subscriber:Not on file Name:TRACY CALVILLO Subscriber ID:Not on file (Home) Address: [address] [place] [phone] Payer ID:Not on file Group ID:Not on file Type:Self Pay Address: [facility] Advance Directives Documents on File Type Date Recorded Patient Clinical Molecular Geneticist Expl anation Adv Directive/Living Will/POA 03/09/2016 n/a * Full Code (Latest Code Status on File) Date Activated Date Inactivated Comments 08/26/2016 9:19 PM 08/27/2016 12:42 AM Care Teams Asp Developer Relationship Specialty Start Date End Date PcpMaddie - PCP - General 02/10/23 [place] [address] [place] [address] Digital Program Manager Obstetrics and Gynecology 01/02/12
--- OUTSIDE RECORDS SUMMARY | 2025-06-09 08:45 | XMS_ITS | Encounter Summary ---
Author Organization [facility] Health Address [address] [facility] [place] [address] Care Team Providers Care Incinerator Plant Supervisor Name Role Phone Renea Saenz MD Primary Care Provider [phone] Dawit Rivas MD Unavailable Melinda Jay MD Primary Care Provider + [phone] Pamela Vazquez OUTSIDE COLLECTOR-SUPERVISOR SHIPPING ROOM Unavailable [phone] Vineet Nuno MD Primary Care Provider [phone] [facility] Primary Care Provid er Unavailable Renea Saenz MD Unavailable [phone] Encounter Details Date Type Department Care Team (Late st Contact Info) Description 01/29/2013 SS Outpatient Visit EXTERNAL NON-[facility] DEPT Melinda Jay MD [address] [facility] [address] [place] [address] Social History Tobacco Use Types Packs/Day Years Used Date Smoking Tobacco: Never Smokeless Tobacco: Never Alcohol Use Standard Drinks/Week Comments Yes 0 (1 standard drink = 0.6 oz pur e alcohol) sometimes Comments No Sex and Gender Information Value Date Recorded Sex Assigned at Not on file Legal Sex Female 4:47 AM SLAB TRIPPER Gender Identity Not on file Sexual Orientation Not on file documented as of this encounter Plan of Treatment Not on file documented as of this encounter Visit Diagnoses Not on filedocumented in this encounter Care Teams Incinerator Plant Supervisor Relationship Specialty Start Date End Date Renea Saenz MD PCP - General 06/18/08 11/16/20 Melinda Jay MD [address] [place] [id number] PCP - General Family Medicine 11/17/20 10/12/21 [place] [address] [place] [phone] PCP - General Family Medicine 10/14/21 02/09/23 PcpMaddie - PCP - General 02/10/23 Renea Saenz MD [address] [place] [phone] PCP - Attributed-[place] [employer] 09/08/17 03/07/18 Dawit Rivas MD [address] [place] [id number] Automation And Controls Manager Obstetrics and Gynecology 01/02/12 Pamela Vazquez, OUTSIDE COLLECTOR-SUPERVISOR SHIPPING ROOM [address] [place] [id number] Nurse Practitioner 12/01/20 10/12/21 documented as of this encounter
--- OUTSIDE RECORDS SUMMARY | 2025-06-09 08:45 | XMS_ITS | Encounter Summary ---
Author Organization [facility] Address [address] [facility] [place] [address] Care Team Providers Care Engineering Specialist Name Role Phone Renea Saenz MD Primary Care Provider [phone] Dawit Rivas MD Unavailable Melinda Jay MD Primary Care Provider + [phone] Pamela Vazquez MANAGER ASSURANCE-[facility] Unavailable [phone] Vineet Nuno MD Primary Care Provider [phone] [facility]add[facility] Primary Care Provid er Unavailable Renea Saenz MD Unavailable [phone] Reason for Visit * Reason Comments Refill Request Encounter Details Date Type Department Care Team (Late st Contact Info) Description 11/14/2017 Refill [facility] - [facility] [employer] [address] [place] [id number] [place] [address] [place] [address] Refill Request Social History Tobacco Use Types Packs/Day Years Used Date Smoking Tobacco: Never Smokeless Tobacco: Never Alcohol Use Standard Drinks/Week Comments Yes 0 (1 standard drink = 0.6 oz pur e alcohol) sometimes Comments No Sex and Gender Information Value Date Recorded Sex Assigned at Not on file Legal Sex Female 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 Gender Identity Not on file Sexual Orientation [...] on filedocumented in this encounter Care Teams Engineering Specialist Relationship Specialty Start Date End Date Renea Saenz MD PCP - General 06/18/08 11/16/20 [place] [address] [place] [address] PCP - General Family Medicine 11/17/20 10/12/21 [place] [address] [facility] [place] [address] PCP - General Family Medicine 10/14/21 02/09/23 [facility]Maddie [facility] PCP - General 02/10/23 Renea Saenz MD [address] [place] [address] [place] [phone] PCP - Attributed-[place] [employer] 09/08/17 03/07/18 [place] [address] [place] [address] Order To Delivery Supervisor Obstetrics and Gynecology 01/02/12 Pamela Vazquez, MANAGER ASSURANCE-[employer] SPECIALIST [address] [place] [address] Nurse Practitioner 12/01/20 10/12/21 documented as of this encounter
--- OUTSIDE RECORDS SUMMARY | 2025-06-09 08:45 | XMS_ITS | Encounter Summary ---
Author Organization [facility] Address [address] [place] [address] Care Team Providers Care Aircraft Hydraulic Equipment Mechanic Name Role Phone Renea Saenz MD Primary Care Provider [phone] Dawit Rivas MD Unavailable Melinda Jay MD Primary Care Provider + [phone] Pamela Vazquez DTP OPERATOR-[facility] Unavailable [phone] Vineet Nuno MD Primary Care Provider [phone] PcpMaddie [facility] Primary Care Provid er Unavailable Renea Saenz MD Unavailable [phone] Reason for Visit * Reason Comments Refill Request Encounter Details Date Type Department Care Team (Late st Contact Info) Description 06/01/2017 Refill [facility] - INSTRUCTOR PHYSICAL EDUCATION [address] [place] [id number] [place] [address] [place] [address] Refill Request Social History Tobacco Use Types Packs/Day Years Used Date Smoking Tobacco: Never Smokeless Tobacco: Never Alcohol Use Standard Drinks/Week Comments Yes 0 (1 standard drink = 0.6 oz pur e alcohol) sometimes Comments No Sex and Gender Information Value Date Recorded Sex Assigned at Not on file 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 Gender Identity Not on file Sexual Orientation [...] on filedocumented in this encounter Care Teams Aircraft Hydraulic Equipment Mechanic Relationship Specialty Start Date End Date Renea Saenz MD PCP - General 06/18/08 11/16/20 [place] [address] [place] [address] PCP - General Family Medicine 11/17/20 10/12/21 [place] [address] [facility] [place] [address] PCP - General Family Medicine 10/14/21 02/09/23 PcpMaddie [facility] PCP - General 02/10/23 Renea Saenz MD [address] [place] [address] [place] [phone] PCP - Attributed-[place] [employer] 09/08/17 03/07/18 [place] [address] [place] [address] Clinical Nurse Occupational Medicine Obstetrics and Gynecology 01/02/12 Pamela Vazquez, DTP OPERATOR-EMERGENCY GENERATOR MECHANIC [address] [place] [address] Nurse Practitioner 12/01/20 10/12/21 documented as of this encounter
[2025-06-09] MEDS: KETOROLAC 30 MG/ML VIAL (*BKC) IM (08:52)
[2025-06-09] MEDS: CYCLOBENZAPRINE HCL 10 MG TABLET PO (08:52)
== END 2025-06-09 08:59 | disposition home or self-care (01) ==
PROVIDERS: Emergency Provider Emergency Medicine; PCP Family Medicine
DX: S29.012A Strain of muscle and tendon of back wall of thorax, initial encounter (principal); J45.909 Unspecified asthma, uncomplicated; Z86.73 Personal history of transient ischemic attack (TIA), and cerebral infarction without residual deficits; X58.XXXA Exposure to other specified factors, initial encounter
CPT/HCPCS: 96372; 99283; A9270; J1885